=== PATIENT | male | born 1990 | race American Indian/Alaskan Native ===

== ENCOUNTER 2017-01-24 16:22 | Emergency (ER) | payer SELFPAY ==
[2017-01-24 16:42] VITALS: BP 117/77
[2017-01-24] MEDS ORDERED: TETRACAINE 0.5% OU PRN (21:09)
[2017-01-24] MEDS ORDERED: FUL-GLO OP ONE (21:09)
--- NOTE | 2017-01-24 21:18 | Emergency Department Report ---
ED Eye Problem HPI - General Chief complaint: Eye Problems Stated complaint: PINK EYE Time Seen by Provider: 01/24/17 21:09 Source: patient Mode of arrival: Ambulatory Limitations: No Limitations - History of Present Illness Initial comments: This is a 26-year-old male nontoxic, well nourished in appearance, no acute signs of distress presents to the ED with c/o of left eye redness, itching, and crusting x2 days. Patient denies blurry vision, headache, stiff neck, nausea, vomiting, chest pain, shortness of breath, blurry vision or visual changes. Denies any eye pain. Patient states allergies to penicillin, sulfa, tramadol, ibuprofen. Denies past medical history. MD chief complaint: eye redness, other (crusting with itching) -: days(s) (2) Onset Description: gradual If Injury: none Eye Symptoms: redness, itching, discharge Severity: mild Consistency: constant Associated Symptoms: none. denies: headache, neck pain, nausea/vomiting, cough , rhinorrhea, fever, shortness of breath Treatments Prior to Arrival: none - Related Data Previous Rx's Medication Instructions Recorded Last Taken Type HYDROcodone/ACETAMINOPHEN [Beatty 1 each PO Q6HR PRN #20 tablet 03/10/13 Unknown Rx 5/325 Tablet] Metaxalone [Skelaxin] 800 mg PO TID #30 tablet 03/10/13 Unknown Rx Polymyxin B Sulf/Trimethoprim 1 drop OS DAILY #1 drops 01/24/17 Unknown Rx [Polytrim Eye Drops] Allergies Allergy/AdvReac Type Severity Reaction Status Date / Time ibuprofen [From Advil] Allergy Hives Verified 01/24/17 16:38 Penicillins Allergy Rash Verified 01/24/17 16:38 Sulfa (Sulfonamide Allergy Rash Verified 01/24/17 16:38 Antibiotics) tramadol AdvReac Diarrhea Verified 01/24/17 16:38 ED Review of Systems ROS: Stated complaint: PINK EYE Other details as noted in HPI Constitutional: denies: chills, fever Eyes: eye discharge. denies: eye pain, vision change ENT: denies: ear pain, throat pain Respiratory: denies: cough, shortness of breath, wheezing Cardiovascular: denies: chest pain, palpitations Endocrine: no symptoms reported Gastrointestinal: denies: abdominal pain, nausea, diarrhea Genitourinary: denies: urgency, dysuria Musculoskeletal: denies: back pain, joint swelling, arthralgia Skin: denies: rash, lesions Neurological: denies: headache, weakness, paresthesias Psychiatric: denies: anxiety, depression Hematological/Lymphatic: denies: easy bleeding, easy bruising ED Past Medical Hx - Past Medical History Previous Medical History?: No - Surgical History Past Surgical History?: No - Social History Smoking Status: Current Some Day Smoker Substance Use Type: None - Medications Home Medications: Home Medications Medication Instructions Recorded Confirmed Last Taken Type HYDROcodone/ACETAMINOPHEN [Beatty 1 each PO Q6HR PRN #20 tablet 03/10/13 Unknown Rx 5/325 Tablet] Metaxalone [Skelaxin] 800 mg PO TID #30 tablet 03/10/13 Unknown Rx Polymyxin B Sulf/Trimethoprim 1 drop OS DAILY #1 drops 01/24/17 Unknown Rx [Polytrim Eye Drops] ED Physical Exam - General Limitations: No Limitations General appearance: alert, in no apparent distress - Head Head exam: Present: atraumatic, normocephalic - Eye Eye exam: Present: normal appearance, PERRL, EOMI. Absent: scleral icterus, conjunctival injection, nystagmus, periorbital swelling, periorbital tenderness Pupils: Present: normal accommodation - Expanded Eye Exam Expanded Eyelids: Normal Inspection: Left Pupils: Regular, Round: Left, Reactive: Left Sclera/Conjunctival: Normal Inspection: Left, Exudate: Left (with crusting and redness and itching) Visual acuity (R) = 20/: 70 Visual acuity (L) = 20/: 70 With correction: No IOP measured with: Tonopen (14) - ENT ENT exam: Present: normal exam, normal orophraynx, mucous membranes moist, TM's normal bilaterally, normal external ear exam - Neck Neck exam: Present: normal inspection, full ROM - Respiratory Respiratory exam: Present: normal lung sounds bilaterally. Absent: respiratory distress - Cardiovascular Cardiovascular Exam: Present: regular rate, normal rhythm. Absent: systolic murmur, diastolic murmur, rubs, gallop - GI/Abdominal GI/Abdominal exam: Present: soft, normal bowel sounds - Rectal Rectal exam: Present: deferred - Extremities Exam Extremities exam: Present: normal inspection - Back Exam Back exam: Present: normal inspection - Neurological Exam Neurological exam: Present: alert, oriented X3 - Psychiatric Psychiatric exam: Present: normal affect, normal mood - Skin Skin exam: Present: warm, dry, intact, normal color. Absent: rash - Other Other exam information: Under Seth lamp, I used fluorescein and tetracaine to examine cornea for corneal abrasion or foreign body, negative for coronary abrasion or foreign body noted upon exam. ED Course Vital Signs 01/24/17 16:38 Temperature 97.7 F Pulse Rate 79 Respiratory 18 Rate Blood Pressure 117/77 O2 Sat by Pulse 98 Oximetry - Reevaluation(s) Reevaluation #1: 01/24/17 21:20 Patient is speaking in full sentences with no signs of distress noted. ED Medical Decision Making - Medical Decision Making This is a 26-year-old that presents with conjunctivitis. Patient is stable and was examined by me. Under Seth lamp, I used fluorescein and tetracaine to examine cornea for corneal abrasion or foreign body, negative for coronary abrasion or foreign body noted upon exam. Normal visual acuity. Patient is discharged with OFloxin. Patient was instructed Follow-up with a primary care doctor in 3-5 days or if symptoms worsen and continue return to emergency room as soon as possible. At time time of discharge, the patient does not seem toxic or ill in appearance. No acute signs of distress noted. Patient agrees to discharge treatment plan of care. No further questions noted by the patient. Critical care attestation.: If time is entered above; I have spent that time in minutes in the direct care of this critically ill patient, excluding procedure time. ED Disposition Clinical Impression: Conjunctivitis Qualifiers: Conjunctivitis type: acute Acute conjunctivitis type: bacterial Laterality: left Qualified Code(s): H10.32 - Unspecified acute conjunctivitis, left eye Disposition: DC- TO HOME OR SELFCARE Is pt being admited?: No Does the pt Need Aspirin: No Condition: Stable Instructions: Conjunctivitis (ED), Ofloxacin (Into the eye) Additional Instructions: Follow-up with a primary care doctor in 3-5 days or if symptoms worsen and continue return to emergency room as soon as possible. Prescriptions: Polymyxin B Sulf/Trimethoprim [Polytrim Eye Drops] 1 drop OS DAILY #1 drops Referrals: PRIMARY CARE, [Primary Care Provider] - 3-5 Days RAQUEL CARRERA MD [Staff Physician] - 3-5 Days KANWAL MCFADDEN MD [Staff Physician] - 3-5 Days [facility] [Outside] - 3-5 Days [facility] [Outside] - 3-5 Days Forms: Work/School Release Form(ED)
== END 2017-01-24 21:34 | disposition home or self-care (01) ==
LOC: ED 16:22
DX: H10.32 Unspecified acute conjunctivitis, left eye (principal); F17.200 Nicotine dependence, unspecified, uncomplicated; Z88.0 Allergy status to penicillin; Z88.6 Allergy status to analgesic agent; Z88.2 Allergy status to sulfonamides
CPT/HCPCS: 99283

== ENCOUNTER 2017-03-02 13:54 | Emergency (ER) | payer SELFPAY ==
--- NOTE | 2017-03-02 17:01 | XRay Report ---
FINAL REPORT PROCEDURE: Right wrist. TECHNIQUE: Four views. HISTORY: Wrist pain and swelling. COMPARISON: No prior studies are available for comparison. FINDINGS: The bones appear intact without fracture or dislocation. The joint spaces appear normal. The soft tissues are unremarkable. IMPRESSION: Normal study.
[2017-03-02 19:45] VITALS: BP 106/74
[2017-03-02] MEDS ORDERED: TYLENOL PO ONE (20:44)
--- NOTE | 2017-03-02 20:44 | Emergency Department Report ---
ED Upper Extremity Inj HPI - General Chief Complaint: Extremity Injury, Upper Stated Complaint: RIGHT WRIST PAIN Time Seen by Provider: 03/02/17 19:32 Source: patient Mode of arrival: Ambulatory Limitations: No Limitations - History of Present Illness Initial Comments: This is a 26-year-old nontoxic, well nourished in appearance, no acute signs of distress presents to the ED with c/o of right wrist pain status post fall. Patient stated he slipped and tried to break his fall and landed on this anterior wrist region. patient denies head trauma. Denies loss of consciousness.Patient denies any other trauma. Denies numbness, tingling, fever , chills, nausea, vomiting, chest and shortness of breath. Patient states allergies to ibuprofen, penicillin, sulfa and tramadol. Denies past medical history. MD Complaint: Injury to:: right, wrist -: This afternoon Other Extremity Injury: Wrist: Right Other Injuries: none Place: outdoors Severity scale (0 -10): 8 Improves With: none Worsens With: none Context: fall Associated Symptoms: denies other symptoms. denies: weakness, numbness, neck pain, suspects foreign body, nausea/vomiting, heard/felt popping sensat - Related Data Previous Rx's Medication Instructions Recorded Last Taken Type HYDROcodone/ACETAMINOPHEN [[place]olt 1 each PO Q6HR PRN #20 tablet 03/10/13 Unknown Rx 5/325 Tablet] Metaxalone [Skelaxin] 800 mg PO TID #30 tablet 03/10/13 Unknown Rx Polymyxin B Sulf/Trimethoprim 1 drop OS DAILY #1 drops 01/24/17 Unknown Rx [Polytrim Eye Drops] Acetaminophen/Codeine [Tylenol 1 tab PO Q6H PRN #12 tab 03/02/17 Unknown Rx /Codeine # 3 tab] Allergies Allergy/AdvReac Type Severity Reaction Status Date / Time ibuprofen [From Advil] Allergy Hives Verified 03/02/17 14:54 Penicillins Allergy Rash Verified 03/02/17 14:54 Sulfa (Sulfonamide Allergy Rash Verified 03/02/17 14:54 Antibiotics) tramadol AdvReac Diarrhea Verified 03/02/17 14:54 ED Review of Systems ROS: Stated complaint: RIGHT WRIST PAIN Other details as noted in HPI Constitutional: denies: chills, fever Eyes: denies: eye pain, eye discharge, vision change ENT: denies: ear pain, throat pain Respiratory: denies: cough, shortness of breath, wheezing Cardiovascular: denies: chest pain, palpitations Endocrine: no symptoms reported Gastrointestinal: denies: abdominal pain, nausea, diarrhea Genitourinary: denies: urgency, dysuria Musculoskeletal: denies: back pain, joint swelling, arthralgia Skin: denies: rash, lesions Neurological: denies: headache, weakness, paresthesias Psychiatric: denies: anxiety, depression Hematological/Lymphatic: denies: easy bleeding, easy bruising ED Past Medical Hx - Social History Smoking Status: Current Every Day Smoker Substance Use Type: None - Medications Home Medications: Home Medications Medication Instructions Recorded Confirmed Last Taken Type HYDROcodone/ACETAMINOPHEN [Holt 1 each PO Q6HR PRN #20 tablet 03/10/13 Unknown Rx 5/325 Tablet] Metaxalone [Skelaxin] 800 mg PO TID #30 tablet 03/10/13 Unknown Rx Polymyxin B Sulf/Trimethoprim 1 drop OS DAILY #1 drops 01/24/17 Unknown Rx [Polytrim Eye Drops] Acetaminophen/Codeine [Tylenol 1 tab PO Q6H PRN #12 tab 03/02/17 Unknown Rx /Codeine # 3 tab] ED Physical Exam - General Limitations: No Limitations General appearance: alert, in no apparent distress - Head Head exam: Present: atraumatic, normocephalic - Eye Eye exam: Present: normal appearance - ENT ENT exam: Present: mucous membranes moist - Neck Neck exam: Present: normal inspection - Respiratory Respiratory exam: Present: normal lung sounds bilaterally. Absent: respiratory distress - Cardiovascular Cardiovascular Exam: Present: regular rate, normal rhythm. Absent: systolic murmur, diastolic murmur, rubs, gallop - GI/Abdominal GI/Abdominal exam: Present: soft, normal bowel sounds - Rectal Rectal exam: Present: deferred - Extremities Exam Extremities exam: Present: normal inspection, full ROM, tenderness, normal capillary refill. Absent: pedal edema, joint swelling, calf tenderness - Expanded Upper Extremity Exam Right General: Present: normal inspection Shoulder Exam: Present: normal inspection, full ROM Upper Arm exam: Present: normal inspection, full ROM Elbow exam: Present: normal inspection, full ROM Forearm Wrist exam: Present: normal inspection, full ROM, tenderness. Absent: swelling, abrasion, laceration, ecchymosis, deformity, crepidus, dislocation, erythema, tenderness over anatomical snuff box, pain with axial thumb loading Hand Wrist exam: Present: normal inspection, full ROM. Absent: tenderness, swelling, abrasion, laceration, ecchymosis, deformity, crepidus, dislocation, erythema, amputation, nail avulsion, subungual hematoma Hand L/R Back: 1 - tenderness Neuro motor exam: Present: wrist extension intact, thumb opposition intact, thumb IP flexion intact, thumb adduction intact, fingers 2-5 abduction intact Neurosensory exam: Present: 2-point discrimination, radial nerve intact, ulnar nerve intact, median nerve intact Vascular: Present: vascular compromise, normal capillary refill, radial pulse, brachial pulse, ulnar pulse - Back Exam Back exam: Present: normal inspection, full ROM - Neurological Exam Neurological exam: Present: alert, oriented X3, CN II-XII intact, normal gait, reflexes normal - Psychiatric Psychiatric exam: Present: normal affect, normal mood - Skin Skin exam: Present: warm, dry, intact, normal color. Absent: rash ED Course Vital Signs 03/02/17 03/02/17 14:54 19:36 Temperature 98.2 F Pulse Rate 72 70 Respiratory 18 18 Rate Blood Pressure 107/67 106/74 O2 Sat by Pulse 96 100 Oximetry ED Medical Decision Making - Medical Decision Making 26-year-old male that presents with right wrist strain. Patient is stable and was felt by me. X-ray has been obtained and the radiologist with normal exam. She is notified of x-ray results withthe patient. Patient received Tylenol 975 mg in the ED. Patient discharged with Tylenol 3. Patient received hand Velcro splint. Patient advised to follow-up with orthopedic doctor in 3-5 days or if symptoms worsen to return to the ED. At time time of discharge, the patient does not seem toxic or ill in appearance. No acute signs of distress noted. Patient agrees to discharge treatment plan of care. No further questions noted by the patient. Patient was educated on Rice therapy. Critical care attestation.: If time is entered above; I have spent that time in minutes in the direct care of this critically ill patient, excluding procedure time. ED Disposition Clinical Impression: Strain of wrist, right Qualifiers: Encounter type: initial encounter Qualified Code(s): S66.911A - Strain of unspecified muscle, fascia and tendon at wrist and hand level, right hand, initial encounter Disposition: TO HOME OR SELFCARE Is pt being admited?: No Does the pt Need Aspirin: No Condition: Stable Instructions: Wrist Injury (ED), RICE Therapy (ED), Acetaminophen/Codeine (By mouth) Additional Instructions: Follow-up with a orthopedic doctor in 3-5 days or if symptoms worsen and continue return to emergency room as soon as possible. Rest, elevate, ice extremity. Do not operate any machinery while taking Tylenol No. 3 due to drowsiness. Prescriptions: Acetaminophen/Codeine [Tylenol /Codeine # 3 tab] 1 tab PO Q6H PRN #12 tab PRN Reason: Pain Referrals: PRIMARY CAREMD [Primary Care Provider] - 3-5 Days LUKAS CARVAJAL MD [Staff Physician] - 3-5 Days [facility] [Outside] - 3-5 Days [facility] [Outside] - 3-5 Days Forms: Work/School Release Form(ED)
== END 2017-03-02 20:54 | disposition home or self-care (01) ==
LOC: ED 13:54
DX: S66.911A Strain of unspecified muscle, fascia and tendon at wrist and hand level, right hand, initial encounter (principal); F17.200 Nicotine dependence, unspecified, uncomplicated; Z88.6 Allergy status to analgesic agent; Z88.0 Allergy status to penicillin; Z88.2 Allergy status to sulfonamides; W01.0XXA Fall on same level from slipping, tripping and stumbling without subsequent striking against object, initial encounter; Y93.89 Activity, other specified; Y99.8 Other external cause status; Y92.89 Other specified places as the place of occurrence of the external cause

== ENCOUNTER 2017-04-08 01:12 | Inpatient (IN) | payer OTHER ==
--- NOTE | 2017-04-08 03:28 | XRay Report ---
FINAL REPORT PROCEDURE: XR SPINE LUMBOSACRAL 2-3V TECHNIQUE: Lumbar spine radiographs, including AP, lateral, and lumbosacral spot views. CPT 24944 HISTORY: Back Pain COMPARISON: No prior studies are available for comparison. FINDINGS: Alignment: Normal. Vertebral body heights/Disk spaces: Normal. Fracture(s): None. Facets: Normal. Bone mineralization: Normal. IMPRESSION: Normal Examination.
[2017-04-08 03:34] LABS: Hematocrit 37.9 % (35.5-45.6); Mean Corpuscular HGB Conc 34 % (32-34); Mean Corpuscular Hemoglobin 31 pg (28-32); Mean Corpuscular Volume 90 fl (84-94); Platelet Count 210 K/mm3 (140-440); Red Blood Count 4.19 M/mm3 (3.65-5.03); Red Cell Distribution Width 13.1 % (13.2-15.2)
[2017-04-08 03:57] LABS: Alanine Aminotransferase 43 units/L (7-56); Albumin 3.7 g/dL (3.9-5); BUN/Creatinine Ratio 12; Blood Urea Nitrogen 11 mg/dL (9-20); Calcium 8.8 mg/dL (8.4-10.2); Hemolysis Index 9; Lipase 19 units/L (13-60)
[2017-04-08 05:31] LABS: Anisocytosis 1+; Band Neutrophils # (Manual) 0.4 K/mm3; Basophils % (Manual) 0 % (0.0-1.8); Eosinophils % (Manual) 0 % (0.0-4.3); Total Cells Counted 100
[2017-04-08 05:32] LABS: Hypochromasia 1+; Large Platelets Few
[2017-04-08 06:11] LABS: Bilirubin,Urine NEG (Negative); Blood,Urine NEG (Negative); Color,Urine Yellow (Yellow); Mucus,Urine 1+ /HPF; Nitrite,Urine NEG (Negative); Protein,Urine <15 mg/dL mg/dL (Negative); WBC,Urine < 1.0 /HPF (0.0-6.0)
[2017-04-08] MEDS ORDERED: NACL 0.9% 1000 ML 1,000 ML IV ONE (08:24)
[2017-04-08] MEDS ORDERED: PEPCID PO ONE (08:25)
[2017-04-08] MEDS ORDERED: ALUM-MAG HYDROX-SIMETH 200-200-20MG/5ML PO ONE (08:25)
[2017-04-08] MEDS ORDERED: MORPHINE IV ONE (08:25)
[2017-04-08] MEDS ORDERED: LIDOCAINE VISCOUS 2% PO ONE (08:25)
--- NOTE | 2017-04-08 08:29 | Emergency Department Report ---
ED Abdominal Pain HPI - General Chief Complaint: Abdominal Pain Stated Complaint: FLU LIKE SX Time Seen by Provider: 04/08/17 07:49 Source: patient Mode of arrival: Ambulatory Limitations: No Limitations - History of Present Illness Initial Comments: 26-year-old male past medical history none presents with complaint of persistent worsening lower abdominal pain for 5 days. Patient states it starts in his lower abdomen below his navel and radiates to his lower back. Patient denies any trauma. Denies any fevers or chills. Some intermittent associated nausea. States he is passing gas and stool, denies bloody stool. Denies any recent travel or recent antibiotic use. Denies any penile discharge dysuria or testicular swelling. Patient is awake alert and oriented 3. Pain currently 8 out of 10. Denies chest pain palpitations or shortness of breath. MD Complaint: abdominal pain Onset/Timin -: days(s) Location: RLQ Radiation: RLQ Migration to: RLQ Severity: moderate Quality: aching Consistency: constant - Related Data Previous Rx's Medication Instructions Recorded Last Taken Type HYDROcodone/ACETAMINOPHEN [Russell 1 each PO Q6HR PRN #20 tablet 03/10/13 Unknown Rx 5/325 Tablet] Metaxalone [Skelaxin] 800 mg PO TID #30 tablet 03/10/13 Unknown Rx Polymyxin B Sulf/Trimethoprim 1 drop OS DAILY #1 drops 01/24/17 Unknown Rx [Polytrim Eye Drops] Acetaminophen/Codeine [Tylenol 1 tab PO Q6H PRN #12 tab 03/02/17 Unknown Rx /Codeine # 3 tab] Allergies Allergy/AdvReac Type Severity Reaction Status Date / Time ibuprofen [From Advil] Allergy Hives Verified 03/02/17 14:54 Penicillins Allergy Rash Verified 03/02/17 14:54 Sulfa (Sulfonamide Allergy Rash Verified 03/02/17 14:54 Antibiotics) tramadol AdvReac Diarrhea Verified 03/02/17 14:54 ED Review of Systems ROS: Stated complaint: FLU LIKE SX Other details as noted in HPI Constitutional: denies: chills, fever Eyes: denies: eye pain, eye discharge, vision change ENT: denies: ear pain, throat pain Respiratory: denies: cough, shortness of breath, wheezing Cardiovascular: denies: chest pain, palpitations Endocrine: no symptoms reported Gastrointestinal: abdominal pain (persistent worsening abdominal pain for 5 days ). denies: nausea, diarrhea Genitourinary: denies: urgency, dysuria Musculoskeletal: denies: back pain, joint swelling, arthralgia Skin: denies: rash, lesions Neurological: denies: headache, weakness, paresthesias Psychiatric: denies: anxiety, depression Hematological/Lymphatic: denies: easy bleeding, easy bruising ED Past Medical Hx - Past Medical History Previous Medical History?: Yes Hx Asthma: Yes - Surgical History Past Surgical History?: Yes Additional Surgical History: Ear surgery as a teenager. - Social History Smoking Status: Former Smoker Substance Use Type: None - Medications Home Medications: Home Medications Medication Instructions Recorded Confirmed Last Taken Type HYDROcodone/ACETAMINOPHEN [Russell 1 each PO Q6HR PRN #20 tablet 03/10/13 Unknown Rx 5/325 Tablet] Metaxalone [Skelaxin] 800 mg PO TID #30 tablet 03/10/13 Unknown Rx Polymyxin B Sulf/Trimethoprim 1 drop OS DAILY #1 drops 01/24/17 Unknown Rx [Polytrim Eye Drops] Acetaminophen/Codeine [Tylenol 1 tab PO Q6H PRN #12 tab 03/02/17 Unknown Rx /Codeine # 3 tab] ED Physical Exam - General Limitations: No Limitations General appearance: alert, in no apparent distress - Head Head exam: Present: atraumatic, normocephalic - Eye Eye exam: Present: normal appearance, PERRL, EOMI - ENT ENT exam: Present: mucous membranes moist - Neck Neck exam: Present: normal inspection - Respiratory Respiratory exam: Present: normal lung sounds bilaterally. Absent: respiratory distress - Cardiovascular Cardiovascular Exam: Present: regular rate, normal rhythm. Absent: systolic murmur, diastolic murmur, rubs, gallop - GI/Abdominal GI/Abdominal exam: Present: tenderness (rlq pain), normal bowel sounds - Rectal Rectal exam: Present: heme (-) stool - Extremities Exam Extremities exam: Present: normal inspection - Back Exam Back exam: Present: normal inspection - Neurological Exam Neurological exam: Present: alert, oriented X3 - Psychiatric Psychiatric exam: Present: normal affect, normal mood - Skin Skin exam: Present: warm, dry, intact, normal color. Absent: rash ED Course Vital Signs 04/08/17 04/08/17 04/08/17 02:51 09:11 09:34 Temperature 99.2 F Pulse Rate 77 76 Respiratory 20 18 Rate Blood Pressure 112/62 90/53 O2 Sat by Pulse 98 100 Oximetry 04/08/17 09:35 Temperature Pulse Rate 78 Respiratory Rate Blood Pressure O2 Sat by Pulse 100 Oximetry ED Medical Decision Making - Lab Data Result diagrams: 04/08/17 03:07 04/08/17 03:07 - Medical Decision Making A/P: Abdominal pain, ulcerative colitis complications 1-case discussed with Dr. Singer, as per Dr. Singer patient to be admitted to give patient dose of IV antibiotics we'll give Levaquin and metronidazole as patient is allergic to penicillins and cannot give Zosyn at this time 2-nothing by mouth, IV maintenance fluids 3-I discussed case with hospitalist , admission orders placed 4- consult placed for GI. negative bedside IRENE, neg hemoccult test no blood on test Critical care attestation.: If time is entered above; I have spent that time in minutes in the direct care of this critically ill patient, excluding procedure time. ED Disposition Clinical Impression: Abdominal pain Qualifiers: Abdominal location: periumbilical Qualified Code(s): R10.33 - Periumbilical pain Ulcerative colitis Qualifiers: Ulcerative colitis location: other ulcerative colitis Digestive disease complication type: other complication Qualified Code(s): K51.818 - Other ulcerative colitis with other complication Disposition: OP ADMIT IP TO THIS HOSP Is pt being admited?: Yes Does the pt Need Aspirin: No Condition: Stable Referrals: JUAN PERSON MD [Primary Care Provider] - 3-5 Days
[2017-04-08] MEDS ORDERED: NACL ONE (08:37)
--- NOTE | 2017-04-08 09:17 | Cat Scan Report ---
FINAL REPORT EXAM: CT ABDOMEN PELVIS W CON HISTORY: periumbilical pain , rlq pain ? appy TECHNIQUE: CT images are acquired through the Abdomen and Pelvis arterial and delayed phases following intravenous administration of contrast. Transaxial, coronal and sagittal reformations are provided. PRIORS: None FINDINGS: Partially visualized intrathoracic contents are unremarkable. The liver, gallbladder, pancreas, spleen, and adrenal glands are unremarkable. Kidneys show no worrisome lesions, hydronephrosis, or calculi. Urinary bladder is unremarkable. Small and large bowel are normal in caliber. Appendix is normal. No pneumoperitoneum. There are multiple centrally hypo enhancing structures in the abdomen and pelvis with surrounding stranding and edema measuring approximately 12 x 12 millimeters on axial series 3, image 90, of 16 x 12 millimeters on image 114, and 13 x 13 and 14 x 14 millimeters in the perirectal fat on axial image 128. There is mild wall thickening and irregularity involving rectum. Aorta is normal in course and caliber. Superficial soft tissues are unremarkable. No acute or aggressive appearing skeletal findings. IMPRESSION: Centrally necrotic lymph nodes versus abscesses within the retroperitoneum and perirectal fat measuring up to 16 millimeters in greatest individual dimension, as detailed above. Correlation with immune status and symptoms and history of gastrointestinal inflammation/infection is requested. Malignancy could appear similar but is thought less likely. There is suggested mild edematous rectal wall thickening and infiltration of the perirectal fat. Gastroenterology consultation may be helpful for initial further evaluation. Dr. Sarkar discussed findings with CHELSEY Rollins at 0803 [address] Time on 04/08/2017 immediately following the examination.
[2017-04-08] MEDS ORDERED: LEVAQUIN 750MG/150ML 750 MG/150 ML BAG IV ONE (09:48)
[2017-04-08] MEDS ORDERED: MORPHINE IV PRN (09:54)
--- NOTE | 2017-04-08 10:23 | History and Physical Report ---
History of Present Illness Date of examination: 04/08/17 Chief complaint: Abdominal pain History of present illness: Patient is a 26-year-old man with a history of tobacco dependency, marijuana use and ulcerative colitis, diagnosed July 2016 at [facility] with a colonoscopy at that time who presents to the [facility] emergency department with severe sharp constant right lower generalized abdominal pains that started about 5 days ago radiating across lower abdomen to the lower back, the pain became unbearable over the last 24hours associated with nausea without vomiting , constipation, subjective fevers and chills. He denies any cough, chest pain, severe headaches. Past medical history: As HPI Past surgical history: He denies any surgeries Social history: He stopped smoking in couple days ago, he smokes marijuana daily , no alcohol use abuse other illegal drug use Family history: Parents has hypertension but there is no inflammatory bowel syndrome that he is aware of ROS: Constitutional: + fever ENT: denies: throat or neck pain Respiratory: denies: cough, shortness of breath Cardiovascular: denies: chest pain Endocrine: denies unexplained weight loss or gain Gastrointestinal: +abdominal pain, nausea Genitourinary: denies: dysuria Rectal: denies no incontinence, no bleeding, no itching, no discharge Musculoskeletal: +LBP Skin: denies: rash Neurological: denies: headache Hematological/Lymphatic: denies: easy bleeding or easy bruising Allergic/Immunologic: no urticaria, no allergic rhinitis, no anaphylaxis Psych: denies sadness or hopelessness, SI/HI Medications and Allergies Allergies Allergy/AdvReac Type Severity Reaction Status Date / Time ibuprofen [From Advil] Allergy Hives Verified 04/08/17 10:09 Penicillins Allergy Rash Verified 04/08/17 10:09 Sulfa (Sulfonamide Allergy Rash Verified 04/08/17 10:09 Antibiotics) tramadol AdvReac Diarrhea Verified 04/08/17 10:09 Home Medications Medication Instructions Recorded Confirmed Last Taken Type HYDROcodone/ACETAMINOPHEN [[place] 1 each PO Q6HR PRN #20 tablet 03/10/13 Unknown Rx 5/325 Tablet] Metaxalone [Skelaxin] 800 mg PO TID #30 tablet 03/10/13 Unknown Rx Polymyxin B Sulf/Trimethoprim 1 drop OS DAILY #1 drops 01/24/17 Unknown Rx [Polytrim Eye Drops] Acetaminophen/Codeine [Tylenol 1 tab PO Q6H PRN #12 tab 03/02/17 Unknown Rx /Codeine # 3 tab] Active Meds: Active Medications Levofloxacin/Dextrose (Levaquin 750mg/150ml) 750 mg in 150 mls @ 100 mls/hr IV ONCE ONE Stop: 04/08/17 11:17 Last Admin: 04/08/17 09:50 Dose: 100 mls/hr Metronidazole (Flagyl 500 Mg/100 Ml) 500 mg in 100 mls @ 200 mls/hr IV ONCE RICHARD Sodium Chloride (Nacl 0.9% 1000 Ml) 1,000 mls @ 150 mls/hr IV DIRECT RICHARD Morphine Sulfate (Morphine) 2 mg IV Q4H PRN PRN Reason: Pain, Moderate (4-6) Exam - Physical Exam Narrative exam: GEN: WDWN, NAD, AWAKE, ALERT, ORIENTATED 3 HEENT: NCAT, EOMI, PERRL, OP Clear NECK: supple, no adenopathy, no thyromegaly, no JVD CVS/HEART: RRR, NORMAL S1S2, pulses present bilaterally CHEST/LUNGS: CTA B, Symmetrical chest expansion, good air entry bilaterally GI/Abdomen: soft, nondistended, diffuse tenderness with guarding, good bowel sounds, no rebound /Bladder: no suprapubic tenderness, no CVA or paraspinal tenderness EXT/Skin: no c/c/e, no obvious rash MSK: FROM x 4 Neuro: CN 2-12 grossly intact, no new focal deficits Psych: calm - Constitutional Vitals: Temp Pulse Resp BP Pulse Ox 100.2 F H 76 18 90/50 100 04/08/17 10:06 04/08/17 10:06 04/08/17 10:06 04/08/17 10:06 04/08/17 10:06 Results - Labs CBC & Chem 7: 04/08/17 03:07 04/08/17 03:07 Labs: Abnormal lab results 04/08/17 04/08/17 04/08/17 Range/Units 03:07 03:07 Unknown RDW 13.1 L (13.2-15.2) % Monocytes % (Manual) 12.0 H (0.0-7.3) % Monocytes # (Manual) 1.2 H (0.0-0.8) K/mm3 Sodium 136 L (137-145) mmol/L Total Protein 8.5 H (6.3-8.2) g/dL Albumin 3.7 L (3.9-5) g/dL Ur Specific [place] 1.034 H (1.003-1.030) Assessment and Plan Patient is a 26-year-old man with a history of tobacco dependency, marijuana use and ulcerative colitis, diagnosed July 2016 at [facility] with a colonoscopy at that time who presents to the [facility] emergency department with severe sharp constant right lower generalized abdominal pains that started about 5 days ago radiating across lower abdomen to the lower back, the pain became unbearable over the last 24hours associated with nausea without vomiting , constipation, subjective fevers and chills. He denies any cough, chest pain, severe headaches. 2-3v LS spine reported as normal examination CT abd/pelvis w/ constrast reported as Centrally necrotic lymph nodes versus abscesses within the retroperitoneum and perirectal fat measuring up to 16 millimeters in greatest individual dimension, as detailed above. Correlation with immune status and symptoms and history of gastrointestinal inflammation/ infection is requested. Malignancy could appear similar but is thought less likely. There is suggested mild edematous rectal wall thickening and infiltration of the perirectal fat. Gastroenterology consultation may be helpful for initial further evaluation. Dr. Sarkar discussed findings with CHELSEY Rollins at [address] Time on 04/08/2017 immediately following the examination. -Abd pains most likely IBD/UC flare maybe associated with stopping smoking: consult GI -Proctatitis vs Abscess: consult GI, treat with IV abx, ivf -Hypotension: treat with IVF -Constipation: miralax
[2017-04-08] MEDS ORDERED: MORPHINE ONE (11:50)
[2017-04-08] MEDS: FLAGYL 500 MG/100 ML 500 MG/100 ML BAG IV SCH ×2 (12:04→15:10)
--- NOTE | 2017-04-08 12:55 | Gastroenterology Consultation ---
History of Present Illness - Reason for Consult Consult date: 04/08/17 ulcerative colitis Requesting physician: ZION CHAVEZ - History of Present Illness The patient is a 26 year old man now admitted for severe abdominal pain and a history of ulcerative colitis diagnosed at [facility] about 7 months ago. He has had chronic mild diarrhea but was at baseline until a few weeks ago when progressive diffuse abdominal pain began. The patient reports being homeless at the time of his diagnosis and did not take any medications or have any follow up. He does not know the severity or distribution of his disease. CT revealed enlarged mesenteric LNs some with necrotic features. He is not aware of any immunosuppressing conditions. Past History Past Medical History: other (Ulcerative colitis) Past Surgical History: No surgical history Social history: no significant social history, smoking. denies: alcohol abuse, prescription drug abuse Family history: no significant family history Medications and Allergies Allergies Allergy/AdvReac Type Severity Reaction Status Date / Time ibuprofen [From Advil] Allergy Hives Verified 04/08/17 10:09 Penicillins Allergy Rash Verified 04/08/17 10:09 Sulfa (Sulfonamide Allergy Rash Verified 04/08/17 10:09 Antibiotics) tramadol AdvReac Diarrhea Verified 04/08/17 10:09 Home Medications Medication Instructions Recorded Confirmed Last Taken Type HYDROcodone/ACETAMINOPHEN [[place] 1 each PO Q6HR PRN #20 tablet 03/10/13 Unknown Rx 5/325 Tablet] Metaxalone [Skelaxin] 800 mg PO TID #30 tablet 03/10/13 Unknown Rx Polymyxin B Sulf/Trimethoprim 1 drop OS DAILY #1 drops 01/24/17 Unknown Rx [Polytrim Eye Drops] Acetaminophen/Codeine [Tylenol 1 tab PO Q6H PRN #12 tab 03/02/17 Unknown Rx /Codeine # 3 tab] Active Meds: Active Medications Metronidazole (Flagyl 500 Mg/100 Ml) 500 mg in 100 mls @ 200 mls/hr IV ONCE RICHARD Last Admin: 04/08/17 12:04 Dose: 200 mls/hr Sodium Chloride (Nacl 0.9% 1000 Ml) 1,000 mls @ 150 mls/hr IV DIRECT RICHARD Morphine Sulfate (Morphine) 2 mg IV Q4H PRN PRN Reason: Pain, Moderate (4-6) Last Admin: 04/08/17 11:53 Dose: 2 mg Review of Systems - Review of Systems Constitutional: no weight loss, no weight gain, no fever, no chills Eyes: no change in vision, no pain Ears, Nose, Throat: no decreased hearing, no difficulty swallowing Breasts: deferred Cardiovascular: no chest pain, no edema, no rapid/irregular heart beat, no shortness of breath, no syncope Respiratory: no cough, no shortness of breath, no wheezing Gastrointestinal: abdominal pain, diarrhea, no nausea, no vomiting, no constipation, no hematochezia, no heartburn, no indigestion Rectal: no pain, no incontinence Male Genitourinary: deferred Musculoskeletal: no gait dysfunction, no joint pain, no muscle pain Integumentary: no deferred, no rash, no pruritis Neurological: no paralysis, no weakness Psychiatric: no anxiety, no memory loss, no change in sleep habits Endocrine: no cold intolerance Hematologic/Lymphatic: no easy bruising, no easy bleeding, no lymphadenopathy Allergic/Immunologic: no wheezing Exam - Constitutional Vital Signs: Temp Pulse Resp BP Pulse Ox 98.5 F 81 18 121/66 100 04/08/17 12:25 04/08/17 12:25 04/08/17 12:25 04/08/17 12:25 04/08/17 12:25 General appearance: no acute distress, well-nourished - EENT Eyes: PERRL ENT: hearing intact, clear oral mucosa, dentition normal - Neck Neck: supple, normal ROM, no masses or JVD - Respiratory Respiratory effort: normal Respiratory: bilateral: CTA - Breasts Breasts: deferred - Cardiovascular Rhythm: regular Heart Sounds: Present: S1 & S2. Absent: gallop, rub Extremities: pulses intact, No edema, normal color, Full ROM - Gastrointestinal General gastrointestinal: Present: soft, tender (mild diffuse tenderness, no rebound or guarding.), non-distended. Absent: rigid, hepatomegaly, splenomegaly , mass Rectal Exam: deferred - Genitourinary Male Genitourinary: deferred - Integumentary Integumentary: Present: clear, warm, dry - Neurologic Neurological: alert and oriented x3 - Labs CBC & Chem 7: 04/08/17 03:07 04/08/17 03:07 Lab Results: Laboratory Results - last 24 hr 02/17/18 02/17/18 02/17/18 03:07 03:07 08:38 WBC 10.2 RBC 4.19 Hgb 13.0 Hct 37.9 MCV 90 MCH 31 MCHC 34 RDW 13.1 L Plt Count 210 Add Manual Diff Complete Total Counted 100 Seg Neuts % (Manual) 60.0 Band Neutrophils % 4.0 Lymphocytes % (Manual) 24.0 Reactive Lymphs % (Man) 0 Monocytes % (Manual) 12.0 H Eosinophils % (Manual) 0 Basophils % (Manual) 0 Metamyelocytes % 0 Myelocytes % 0 Promyelocytes % 0 Blast Cells % 0 Nucleated RBC % Not Reportable Seg Neutrophils # Man 6.1 Band Neutrophils # 0.4 Lymphocytes # (Manual) 2.4 Abs React Lymphs (Man) 0.0 Monocytes # (Manual) 1.2 H Eosinophils # (Manual) 0.0 Basophils # (Manual) 0.0 Metamyelocytes # 0.0 Myelocytes # 0.0 Promyelocytes # 0.0 Blast Cells # 0.0 WBC Morphology Not Reportable Hypersegmented Neuts Not Reportable Hyposegmented Neuts Not Reportable Hypogranular Neuts Not Reportable Smudge Cells Not Reportable Toxic Granulation Not Reportable Toxic Vacuolation Not Reportable Dohle Bodies Not Reportable Pelger-Huet Anomaly Not Reportable Dougei Rods Not Reportable Platelet Estimate Appears normal Clumped Platelets Not Reportable Plt Clumps, EDTA Not Reportable Large Platelets Few Giant Platelets Not Reportable Platelet Satelliting Not Reportable Plt Morphology Comment Not Reportable RBC Morphology Not Reportable Dimorphic RBCs Not Reportable Polychromasia Not Reportable Hypochromasia 1+ Poikilocytosis Not Reportable Anisocytosis 1+ Microcytosis Not Reportable Macrocytosis Not Reportable Spherocytes Not Reportable Pappenheimer Bodies Not Reportable Sickle Cells Not Reportable Target Cells Not Reportable Tear Drop Cells Not Reportable Ovalocytes Not Reportable Helmet Cells Not Reportable [place] Bodies Not Reportable [place] Rings Not Reportable Majo Cells Not Reportable Bite Cells Not Reportable Crenated Cell Not Reportable Elliptocytes Not Reportable Acanthocytes (Spur) Not Reportable Rouleaux Not Reportable Hemoglobin C Crystals Not Reportable Schistocytes Not Reportable Malaria parasites Not Reportable Bay Bodies Not Reportable Hem Pathologist Commnt No Sodium 136 L Potassium 4.4 Chloride 98.6 Carbon Dioxide 26 Anion Gap 16 BUN 11 Creatinine 0.9 Estimated GFR > 60 BUN/Creatinine Ratio 12 Glucose 88 Lactic Acid 0.70 Calcium 8.8 Total Bilirubin 0.30 AST 34 ALT 43 Alkaline Phosphatase 119 Total Creatine Kinase Total Protein 8.5 H Albumin 3.7 L Albumin/Globulin Ratio 0.8 Lipase 19 Urine Color Urine Turbidity Urine pH Ur Specific [place] Urine Protein Urine Glucose (UA) Urine Ketones Urine Blood Urine Nitrite Urine Bilirubin Urine Urobilinogen Ur Leukocyte Esterase Urine WBC (Auto) Urine RBC (Auto) U Epithel Cells (Auto) Urine Mucus 04/08/17 04/08/17 08:38 Unknown WBC RBC Hgb Hct MCV MCH MCHC RDW Plt Count Add Manual Diff Total Counted Seg Neuts % (Manual) Band Neutrophils % Lymphocytes % (Manual) Reactive Lymphs % (Man) Monocytes % (Manual) Eosinophils % (Manual) Basophils % (Manual) Metamyelocytes % Myelocytes % Promyelocytes % Blast Cells % Nucleated RBC % Seg Neutrophils # Man Band Neutrophils # Lymphocytes # (Manual) Abs React Lymphs (Man) Monocytes # (Manual) Eosinophils # (Manual) Basophils # (Manual) Metamyelocytes # Myelocytes # Promyelocytes # Blast Cells # WBC Morphology Hypersegmented Neuts Hyposegmented Neuts Hypogranular Neuts Smudge Cells Toxic Granulation Toxic Vacuolation Dohle Bodies Pelger-Huet Anomaly Dougie Rods Platelet Estimate Clumped Platelets Plt Clumps, EDTA Large Platelets Giant Platelets Platelet Satelliting Plt Morphology Comment RBC Morphology Dimorphic RBCs Polychromasia Hypochromasia Poikilocytosis Anisocytosis Microcytosis Macrocytosis Spherocytes Pappenheimer Bodies Sickle Cells Target Cells Tear Drop Cells Ovalocytes Helmet Cells Goodman-[place] Bodies [place] Rings Majo Cells Bite Cells Crenated Cell Elliptocytes Acanthocytes (Spur) Rouleaux Hemoglobin C Crystals Schistocytes Malaria parasites [place] Bodies Hem Pathologist Commnt Sodium Potassium Chloride Carbon Dioxide Anion Gap BUN Creatinine Estimated GFR BUN/Creatinine Ratio Glucose Lactic Acid Calcium Total Bilirubin AST ALT Alkaline Phosphatase Total Creatine Kinase 137 Total Protein Albumin Albumin/Globulin Ratio Lipase Urine Color Yellow Urine Turbidity Clear Urine pH 5.0 Ur Specific [place] 1.034 H Urine Protein <15 mg/dl Urine Glucose (UA) Neg Urine Ketones Neg Urine Blood Neg Urine Nitrite Neg Urine Bilirubin Neg Urine Urobilinogen 4.0 Ur Leukocyte Esterase Neg Urine WBC (Auto) < 1.0 Urine RBC (Auto) 3.0 U Epithel Cells (Auto) < 1.0 Urine Mucus 1+ Laboratory Results - last 24 hr 04/08/17 04/08/17 04/08/17 03:07 03:07 08:38 WBC 10.2 RBC 4.19 Hgb 13.0 Hct 37.9 MCV 90 MCH 31 MCHC 34 RDW 13.1 L Plt Count 210 Add Manual Diff Complete Total Counted 100 Seg Neuts % (Manual) 60.0 Band Neutrophils % 4.0 Lymphocytes % (Manual) 24.0 Reactive Lymphs % (Man) 0 Monocytes % (Manual) 12.0 H Eosinophils % (Manual) 0 Basophils % (Manual) 0 Metamyelocytes % 0 Myelocytes % 0 Promyelocytes % 0 Blast Cells % 0 Nucleated RBC % Not Reportable Seg Neutrophils # Man 6.1 Band Neutrophils # 0.4 Lymphocytes # (Manual) 2.4 Abs React Lymphs (Man) 0.0 Monocytes # (Manual) 1.2 H Eosinophils # (Manual) 0.0 Basophils # (Manual) 0.0 Metamyelocytes # 0.0 Myelocytes # 0.0 Promyelocytes # 0.0 Blast Cells # 0.0 WBC Morphology Not Reportable Hypersegmented Neuts Not Reportable Hyposegmented Neuts Not Reportable Hypogranular Neuts Not Reportable Smudge Cells Not Reportable Toxic Granulation Not Reportable Toxic Vacuolation Not Reportable Dohle Bodies Not Reportable Pelger-Huet Anomaly Not Reportable Dougie Rods Not Reportable Platelet Estimate Appears normal Clumped Platelets Not Reportable Plt Clumps, EDTA Not Reportable Large Platelets Few Giant Platelets Not Reportable Platelet Satelliting Not Reportable Plt Morphology Comment Not Reportable RBC Morphology Not Reportable Dimorphic RBCs Not Reportable Polychromasia Not Reportable Hypochromasia 1+ Poikilocytosis Not Reportable Anisocytosis 1+ Microcytosis Not Reportable Macrocytosis Not Reportable Spherocytes Not Reportable Pappenheimer Bodies Not Reportable Sickle Cells Not Reportable Target Cells Not Reportable Tear Drop Cells Not Reportable Ovalocytes Not Reportable Helmet Cells Not Reportable [place] Bodies Not Reportable [place] Rings Not Reportable Majo Cells Not Reportable Bite Cells Not Reportable Crenated Cell Not Reportable Elliptocytes Not Reportable Acanthocytes (Spur) Not Reportable Rouleaux Not Reportable Hemoglobin C Crystals Not Reportable Schistocytes Not Reportable Malaria parasites Not Reportable [place] Bodies Not Reportable Hem Pathologist Commnt No Sodium 136 L Potassium 4.4 Chloride 98.6 Carbon Dioxide 26 Anion Gap 16 BUN 11 Creatinine 0.9 Estimated GFR > 60 BUN/Creatinine Ratio 12 Glucose 88 Lactic Acid 0.70 Calcium 8.8 Total Bilirubin 0.30 AST 34 ALT 43 Alkaline Phosphatase 119 Total Creatine Kinase Total Protein 8.5 H Albumin 3.7 L Albumin/Globulin Ratio 0.8 Lipase 19 Urine Color Urine Turbidity Urine pH Ur Specific [place] Urine Protein Urine Glucose (UA) Urine Ketones Urine Blood Urine Nitrite Urine Bilirubin Urine Urobilinogen Ur Leukocyte Esterase Urine WBC (Auto) Urine RBC (Auto) U Epithel Cells (Auto) Urine Mucus 04/08/17 04/08/17 08:38 Unknown WBC RBC Hgb Hct MCV MCH MCHC RDW Plt Count Add Manual Diff Total Counted Seg Neuts % (Manual) Band Neutrophils % Lymphocytes % (Manual) Reactive Lymphs % (Man) Monocytes % (Manual) Eosinophils % (Manual) Basophils % (Manual) Metamyelocytes % Myelocytes % Promyelocytes % Blast Cells % Nucleated RBC % Seg Neutrophils # Man Band Neutrophils # Lymphocytes # (Manual) Abs React Lymphs (Man) Monocytes # (Manual) Eosinophils # (Manual) Basophils # (Manual) Metamyelocytes # Myelocytes # Promyelocytes # Blast Cells # WBC Morphology Hypersegmented Neuts Hyposegmented Neuts Hypogranular Neuts Smudge Cells Toxic Granulation Toxic Vacuolation Dohle Bodies Pelger-Huet Anomaly Dougie Rods Platelet Estimate Clumped Platelets Plt Clumps, EDTA Large Platelets Giant Platelets Platelet Satelliting Plt Morphology Comment RBC Morphology Dimorphic RBCs Polychromasia Hypochromasia Poikilocytosis Anisocytosis Microcytosis Macrocytosis Spherocytes Pappenheimer Bodies Sickle Cells Target Cells Tear Drop Cells Ovalocytes Helmet Cells Goodman-[place] Bodies [place] Rings Majo Cells Bite Cells Crenated Cell Elliptocytes Acanthocytes (Spur) Rouleaux Hemoglobin C Crystals Schistocytes Malaria parasites [place] Bodies Hem Pathologist Commnt Sodium Potassium Chloride Carbon Dioxide Anion Gap BUN Creatinine Estimated GFR BUN/Creatinine Ratio Glucose Lactic Acid Calcium Total Bilirubin AST ALT Alkaline Phosphatase Total Creatine Kinase 137 Total Protein Albumin Albumin/Globulin Ratio Lipase Urine Color Yellow Urine Turbidity Clear Urine pH 5.0 Ur Specific [place] 1.034 H Urine Protein <15 mg/dl Urine Glucose (UA) Neg Urine Ketones Neg Urine Blood Neg Urine Nitrite Neg Urine Bilirubin Neg Urine Urobilinogen 4.0 Ur Leukocyte Esterase Neg Urine WBC (Auto) < 1.0 Urine RBC (Auto) 3.0 U Epithel Cells (Auto) < 1.0 Urine Mucus 1+ - Imaging CT Scan: report reviewed Assessment and Plan - Patient Problems (1) Mesenteric lymphadenopathy Current Visit: Yes Status: Acute Plan to address problem: Possibly infectious vs reactive. Rule out TB, HIV. Agree with empiric antibiotic coverage. (2) Ulcerative colitis Current Visit: Yes Status: Acute Qualifiers: Ulcerative colitis location: other ulcerative colitis Digestive disease complication type: other complication Qualified Code(s): K51.818 - Other ulcerative colitis with other complication Plan to address problem: Untreated UC with unknown severity and distribution as the patient has not been engaged in healthcare since diagnosis 7 months ago. Would avoid steroids until infectious possibilities are clarified. Need old records. May need repeat colonoscopy.
[2017-04-08] MEDS: MORPHINE IV PRN (17:39)
[2017-04-09] MEDS: NACL 0.9% 1000 ML 1,000 ML IV SCH ×2 (06:49→13:52)
[2017-04-09] MEDS: MORPHINE IV PRN (06:57)
--- NOTE | 2017-04-09 15:35 | Gastroenterology Progress Note ---
Assessment and Plan - Patient Problems (1) Mesenteric lymphadenopathy Current Visit: Yes Status: Acute Plan to address problem: Possibly related to HIV disease. (2) Ulcerative colitis Current Visit: Yes Status: Acute Qualifiers: Ulcerative colitis location: other ulcerative colitis Digestive disease complication type: other complication Qualified Code(s): K51.818 - Other ulcerative colitis with other complication Plan to address problem: His symptoms are not consistent with UC even though he was told of this by investigation elsewhere. Will need old records. He may have had a self limited infection in light of the absence of symptoms. Reports mostly constipation. (3) HIV antibody positive Current Visit: Yes Status: Acute Plan to address problem: Patient was informed. Discussed at length. Advised that more evaluation and therapy will be needed. Subjective Date of service: 04/09/17 Principal diagnosis: Ulcerative colitis Interval history: Feels a lot better today. Notes he has had no recent diarrhea, more constipation. No blood in the stool. Objective - Constitutional Vitals: Temp Pulse Resp BP Pulse Ox 99.6 F 85 20 118/69 98 04/09/17 07:16 04/09/17 07:16 04/09/17 07:16 04/09/17 07:16 04/09/17 07:16 General appearance: no acute distress - EENT ENT: hearing intact, clear oral mucosa, dentition normal - Neck Neck: supple, normal ROM - Respiratory Respiratory effort: normal Respiratory: bilateral: CTA - Cardiovascular Rhythm: regular - Extremities Extremities: pulses intact, No edema, normal color, Full ROM - Gastrointestinal General gastrointestinal: Present: soft, non-tender, non-distended, normal bowel sounds - Neurologic Neurological: alert and oriented x3 - Labs CBC & Chem 7: 04/08/17 03:07 04/08/17 03:07 Labs: Laboratory Results - last 24 hr 04/08/17 17:22 HIV 1&2 Antibody Rapid Reactive HIV P24 Antigen Non react
--- NOTE | 2017-04-09 15:38 | Progress Note ---
Assessment and Plan Assessment and plan: Patient is a 26-year-old man with a history of tobacco dependency, marijuana use and ulcerative colitis, diagnosed July 2016 at [facility] with a colonoscopy at that time who presents to the [facility] emergency department with severe sharp constant right lower generalized abdominal pains that started about 5 days ago radiating across lower abdomen to the lower back, the pain became unbearable over the last 24hours associated with nausea without vomiting , constipation, subjective fevers and chills. He denies any cough, chest pain, severe headaches. 2-3v LS spine reported as normal examination CT abd/pelvis w/ constrast reported as Centrally necrotic lymph nodes versus abscesses within the retroperitoneum and perirectal fat measuring up to 16 millimeters in greatest individual dimension, as detailed above. Correlation with immune status and symptoms and history of gastrointestinal inflammation/ infection is requested. Malignancy could appear similar but is thought less likely. There is suggested mild edematous rectal wall thickening and infiltration of the perirectal fat. Gastroenterology consultation may be helpful for initial further evaluation. Dr. Sarkar discussed findings with CHELSEY Rollins at [address]803 [address] Time on 04/08/2017 immediately following the examination. -Abd pains most likely HIV related maybe associated with stopping smoking: consulted GI -HIV positive: consult ID -Mesenteric LAD: GI is following, HIV + Interferon gold pending for TB -Hypotension: treat with IVF -Constipation: miralax Await [facility]. History Interval history: Pt seen and examined, follow up abd pains. No new issues Hospitalist Physical - Physical exam Narrative exam: GEN: WDWN, NAD, AWAKE, ALERT, ORIENTATED 3 HEENT: NCAT, EOMI, PERRL, OP Clear NECK: supple, no adenopathy, no thyromegaly, no JVD CVS/HEART: RRR, NORMAL S1S2, pulses present bilaterally CHEST/LUNGS: CTA B, Symmetrical chest expansion, good air entry bilaterally GI/Abdomen: soft, nondistended, diffuse tenderness with guarding, good bowel sounds, no rebound /Bladder: no suprapubic tenderness, no CVA or paraspinal tenderness EXT/Skin: no c/c/e, no obvious rash MSK: FROM x 4 Neuro: CN 2-12 grossly intact, no new focal deficits Psych: just was told he is HIV by Dr. Barrios, he is in shock right now, denies SI , HI - Constitutional Vitals: Temp Pulse Resp BP Pulse Ox 99.6 F 85 20 118/69 98 04/09/17 07:16 04/09/17 07:16 04/09/17 07:16 04/09/17 07:16 04/09/17 07:16 Results - Labs CBC & Chem 7: 04/08/17 03:07 04/08/17 03:07 Labs: Laboratory Last Values WBC 10.2 K/mm3 (4.5-11.0) 04/08/17 03:07 RBC 4.19 M/mm3 (3.65-5.03) 04/08/17 03:07 Hgb 13.0 gm/dl (11.8-15.2) 04/08/17 03:07 Hct 37.9 % (35.5-45.6) 04/08/17 03:07 MCV 90 fl (84-94) 04/08/17 03:07 MCH 31 pg (28-32) 04/08/17 03:07 MCHC 34 % (32-34) 04/08/17 03:07 RDW 13.1 % (13.2-15.2) L 04/08/17 03:07 Plt Count 210 K/mm3 (140-440) 04/08/17 03:07 Add Manual Diff Complete 04/08/17 03:07 Total Counted 100 04/08/17 03:07 Seg Neuts % (Manual) 60.0 % (40.0-70.0) 04/08/17 03:07 Band Neutrophils % 4.0 % 04/08/17 03:07 Lymphocytes % (Manual) 24.0 % (13.4-35.0) 04/08/17 03:07 Reactive Lymphs % (Man) 0 % 04/08/17 03:07 Monocytes % (Manual) 12.0 % (0.0-7.3) H 04/08/17 03:07 Eosinophils % (Manual) 0 % (0.0-4.3) 04/08/17 03:07 Basophils % (Manual) 0 % (0.0-1.8) 04/08/17 03:07 Metamyelocytes % 0 % 04/08/17 03:07 Myelocytes % 0 % 04/08/17 03:07 Promyelocytes % 0 % 04/08/17 03:07 Blast Cells % 0 % 04/08/17 03:07 Nucleated RBC % Not Reportable 04/08/17 03:07 Seg Neutrophils # Man 6.1 K/mm3 (1.8-7.7) 04/08/17 03:07 Band Neutrophils # 0.4 K/mm3 04/08/17 03:07 Lymphocytes # (Manual) 2.4 K/mm3 (1.2-5.4) 04/08/17 03:07 Abs React Lymphs (Man) 0.0 K/mm3 04/08/17 03:07 Monocytes # (Manual) 1.2 K/mm3 (0.0-0.8) H 04/08/17 03:07 Eosinophils # (Manual) 0.0 K/mm3 (0.0-0.4) 04/08/17 03:07 Basophils # (Manual) 0.0 K/mm3 (0.0-0.1) 04/08/17 03:07 Metamyelocytes # 0.0 K/mm3 04/08/17 03:07 Myelocytes # 0.0 K/mm3 04/08/17 03:07 Promyelocytes # 0.0 K/mm3 04/08/17 03:07 Blast Cells # 0.0 K/mm3 04/08/17 03:07 WBC Morphology Not Reportable 04/08/17 03:07 Hypersegmented Neuts Not Reportable 04/08/17 03:07 Hyposegmented Neuts Not Reportable 04/08/17 03:07 Hypogranular Neuts Not Reportable 04/08/17 03:07 Smudge Cells Not Reportable 04/08/17 03:07 Toxic Granulation Not Reportable 04/08/17 03:07 Toxic Vacuolation Not Reportable 04/08/17 03:07 Dohle Bodies Not Reportable 04/08/17 03:07 Pelger-Huet Anomaly Not Reportable 04/08/17 03:07 Dougie Rods Not Reportable 04/08/17 03:07 Platelet Estimate Appears normal 04/08/17 03:07 Clumped Platelets Not Reportable 04/08/17 03:07 Plt Clumps, EDTA Not Reportable 04/08/17 03:07 Large Platelets Few 04/08/17 03:07 Giant Platelets Not Reportable 04/08/17 03:07 Platelet Satelliting Not Reportable 04/08/17 03:07 Plt Morphology Comment Not Reportable 04/08/17 03:07 RBC Morphology Not Reportable 04/08/17 03:07 Dimorphic RBCs Not Reportable 04/08/17 03:07 Polychromasia Not Reportable 04/08/17 03:07 Hypochromasia 1+ 04/08/17 03:07 Poikilocytosis Not Reportable 04/08/17 03:07 Anisocytosis 1+ 04/08/17 03:07 Microcytosis Not Reportable 04/08/17 03:07 Macrocytosis Not Reportable 04/08/17 03:07 Spherocytes Not Reportable 04/08/17 03:07 Pappenheimer Bodies Not Reportable 04/08/17 03:07 Sickle Cells Not Reportable 04/08/17 03:07 Target Cells Not Reportable 04/08/17 03:07 Tear Drop Cells Not Reportable 04/08/17 03:07 Ovalocytes Not Reportable 04/08/17 03:07 Helmet Cells Not Reportable 04/08/17 03:07 Goodman-[place] Bodies Not Reportable 04/08/17 03:07 [place] Rings Not Reportable 04/08/17 03:07 [place] Cells Not Reportable 04/08/17 03:07 Bite Cells Not Reportable 04/08/17 03:07 Crenated Cell Not Reportable 04/08/17 03:07 Elliptocytes Not Reportable 04/08/17 03:07 Acanthocytes (Spur) Not Reportable 04/08/17 03:07 Rouleaux Not Reportable 04/08/17 03:07 Hemoglobin C Crystals Not Reportable 04/08/17 03:07 Schistocytes Not Reportable 04/08/17 03:07 Malaria parasites Not Reportable 04/08/17 03:07 Bay Bodies Not Reportable 04/08/17 03:07 Hem Pathologist Commnt No 04/08/17 03:07 Sodium 136 mmol/L (137-145) L 04/08/17 03:07 Potassium 4.4 mmol/L (3.6-5.0) 04/08/17 03:07 Chloride 98.6 mmol/L (98-107) 04/08/17 03:07 Carbon Dioxide 26 mmol/L (22-30) 04/08/17 03:07 Anion Gap 16 mmol/L 04/08/17 03:07 BUN 11 mg/dL (9-20) 04/08/17 03:07 Creatinine 0.9 mg/dL (0.8-1.5) 04/08/17 03:07 Estimated GFR > 60 ml/min 04/08/17 03:07 BUN/Creatinine Ratio 12 % 04/08/17 03:07 Glucose 88 mg/dL (75-100) 04/08/17 03:07 Lactic Acid 0.70 mmol/L (0.7-2.0) 04/08/17 08:38 Calcium 8.8 mg/dL (8.4-10.2) 04/08/17 03:07 Total Bilirubin 0.30 mg/dL (0.1-1.2) 04/08/17 03:07 AST 34 units/L (5-40) 04/08/17 03:07 ALT 43 units/L (7-56) 04/08/17 03:07 Alkaline Phosphatase 119 units/L (35-129) 04/08/17 03:07 Total Creatine Kinase 137 units/L (55-170) 04/08/17 08:38 Total Protein 8.5 g/dL (6.3-8.2) H 04/08/17 03:07 Albumin 3.7 g/dL (3.9-5) L 04/08/17 03:07 Albumin/Globulin Ratio 0.8 % 04/08/17 03:07 Lipase 19 units/L (13-60) 04/08/17 03:07 Urine Color Yellow (Yellow) 04/08/17 Unknown Urine Turbidity Clear (Clear) 04/08/17 Unknown Urine pH 5.0 (5.0-7.0) 04/08/17 Unknown Ur Specific [place] 1.034 (1.003-1.030) H 04/08/17 Unknown Urine Protein <15 mg/dl mg/dL (Negative) 04/08/17 Unknown Urine Glucose (UA) Neg mg/dL (Negative) 04/08/17 Unknown Urine Ketones Neg mg/dL (Negative) 04/08/17 Unknown Urine Blood Neg (Negative) 04/08/17 Unknown Urine Nitrite Neg (Negative) 04/08/17 Unknown Urine Bilirubin Neg (Negative) 04/08/17 Unknown Urine Urobilinogen 4.0 mg/dL (<2.0) 04/08/17 Unknown Ur Leukocyte Esterase Neg (Negative) 04/08/17 Unknown Urine WBC (Auto) < 1.0 /HPF (0.0-6.0) 04/08/17 Unknown Urine RBC (Auto) 3.0 /HPF (0.0-6.0) 04/08/17 Unknown U Epithel Cells (Auto) < 1.0 /HPF (0-13.0) 04/08/17 Unknown Urine Mucus 1+ /HPF 04/08/17 Unknown Hep Bs Antigen Non-reactive (Negative) 04/08/17 13:20 Hepatitis C Antibody Non-reactive (NonReactive) 04/08/17 13:20 HIV 1&2 Antibody Rapid Reactive (Non React) 04/08/17 17:22 HIV P24 Antigen Non react (Non React) 04/08/17 17:22
[2017-04-09] MEDS: LEVAQUIN PO SCH (16:00)
[2017-04-10] MEDS: NACL 0.9% 1000 ML 1,000 ML IV SCH (01:56)
[2017-04-10] MEDS: MORPHINE IV PRN ×3 (05:29→21:01)
[2017-04-10 05:40] LABS: Hematocrit 36.3 % (35.5-45.6); Hemoglobin 12.5 gm/dl (11.8-15.2); Mean Corpuscular HGB Conc 35 % (32-34); Mean Corpuscular Hemoglobin 31 pg (28-32); Mean Corpuscular Volume 89 fl (84-94); Platelet Count 239 K/mm3 (140-440); Red Blood Count 4.09 M/mm3 (3.65-5.03); Red Cell Distribution Width 13.3 % (13.2-15.2)
[2017-04-10 06:00] LABS: BUN/Creatinine Ratio 9; Blood Urea Nitrogen 7 mg/dL (9-20); Calcium 8.4 mg/dL (8.4-10.2); Hemolysis Index 2
[2017-04-10] MEDS: LEVAQUIN PO SCH (09:09)
--- NOTE | 2017-04-10 13:52 | Progress Note ---
Assessment and Plan Assessment and plan: Patient is a 26-year-old man with a history of tobacco dependency, marijuana use and ulcerative colitis, diagnosed July 2016 at [facility] with a colonoscopy at that time who presents to the [facility] emergency department with severe sharp constant right lower generalized abdominal pains that started about 5 days ago radiating across lower abdomen to the lower back, the pain became unbearable over the last 24hours associated with nausea without vomiting , constipation, subjective fevers and chills. He denies any cough, chest pain, severe headaches. 2-3v LS spine reported as normal examination CT abd/pelvis w/ constrast reported as Centrally necrotic lymph nodes versus abscesses within the retroperitoneum and perirectal fat measuring up to 16 millimeters in greatest individual dimension, as detailed above. Correlation with immune status and symptoms and history of gastrointestinal inflammation/ infection is requested. Malignancy could appear similar but is thought less likely. There is suggested mild edematous rectal wall thickening and infiltration of the perirectal fat. Gastroenterology consultation may be helpful for initial further evaluation. Dr. Sarkar discussed findings with CHELSEY Rollins at [address] Time on 04/08/2017 immediately following the examination. -Abd pains most likely HIV related maybe associated with stopping smoking: consulted GI -HIV positive: consult ID -Mesenteric LAD: GI is following, HIV + Interferon gold pending for TB -Hypotension: treat with IVF -Constipation: miralax Await [facility]. History Interval history: Pt seen and examined, follow up abd pains. No new issues Hospitalist Physical - Physical exam Narrative exam: GEN: WDWN, NAD, AWAKE, ALERT, ORIENTATED 3 HEENT: NCAT, EOMI, PERRL, OP Clear NECK: supple, no adenopathy, no thyromegaly, no JVD CVS/HEART: RRR, NORMAL S1S2, pulses present bilaterally CHEST/LUNGS: CTA B, Symmetrical chest expansion, good air entry bilaterally GI/Abdomen: soft, nondistended, diffuse tenderness with guarding, good bowel sounds, no rebound /Bladder: no suprapubic tenderness, no CVA or paraspinal tenderness EXT/Skin: no c/c/e, no obvious rash MSK: FROM x 4 Neuro: CN 2-12 grossly intact, no new focal deficits Psych: just was told he is HIV by Dr. Barrios, he is in shock right now, denies SI , HI - Constitutional Vitals: Temp Pulse Resp BP Pulse Ox 99.0 F 90 18 107/63 97 04/10/17 07:39 04/10/17 07:39 04/10/17 07:39 04/10/17 07:39 04/10/17 07:39 Results - Labs CBC & Chem 7: 04/10/17 05:16 04/10/17 05:16 Labs: Laboratory Last Values WBC 7.1 K/mm3 (4.5-11.0) 04/10/17 05:16 RBC 4.09 M/mm3 (3.65-5.03) 04/10/17 05:16 Hgb 12.5 gm/dl (11.8-15.2) 04/10/17 05:16 Hct 36.3 % (35.5-45.6) 04/10/17 05:16 MCV 89 fl (84-94) 04/10/17 05:16 MCH 31 pg (28-32) 04/10/17 05:16 MCHC 35 % (32-34) H 04/10/17 05:16 RDW 13.3 % (13.2-15.2) 04/10/17 05:16 Plt Count 239 K/mm3 (140-440) 04/10/17 05:16 Add Manual Diff Complete 04/08/17 03:07 Total Counted 100 04/08/17 03:07 Seg Neuts % (Manual) 60.0 % (40.0-70.0) 04/08/17 03:07 Band Neutrophils % 4.0 % 04/08/17 03:07 Lymphocytes % (Manual) 24.0 % (13.4-35.0) 04/08/17 03:07 Reactive Lymphs % (Man) 0 % 04/08/17 03:07 Monocytes % (Manual) 12.0 % (0.0-7.3) H 04/08/17 03:07 Eosinophils % (Manual) 0 % (0.0-4.3) 04/08/17 03:07 Basophils % (Manual) 0 % (0.0-1.8) 04/08/17 03:07 Metamyelocytes % 0 % 04/08/17 03:07 Myelocytes % 0 % 04/08/17 03:07 Promyelocytes % 0 % 04/08/17 03:07 Blast Cells % 0 % 04/08/17 03:07 Nucleated RBC % Not Reportable 04/08/17 03:07 Seg Neutrophils # Man 6.1 K/mm3 (1.8-7.7) 04/08/17 03:07 Band Neutrophils # 0.4 K/mm3 04/08/17 03:07 Lymphocytes # (Manual) 2.4 K/mm3 (1.2-5.4) 04/08/17 03:07 Abs React Lymphs (Man) 0.0 K/mm3 04/08/17 03:07 Monocytes # (Manual) 1.2 K/mm3 (0.0-0.8) H 04/08/17 03:07 Eosinophils # (Manual) 0.0 K/mm3 (0.0-0.4) 04/08/17 03:07 Basophils # (Manual) 0.0 K/mm3 (0.0-0.1) 04/08/17 03:07 Metamyelocytes # 0.0 K/mm3 04/08/17 03:07 Myelocytes # 0.0 K/mm3 04/08/17 03:07 Promyelocytes # 0.0 K/mm3 04/08/17 03:07 Blast Cells # 0.0 K/mm3 04/08/17 03:07 WBC Morphology Not Reportable 04/08/17 03:07 Hypersegmented Neuts Not Reportable 04/08/17 03:07 Hyposegmented Neuts Not Reportable 04/08/17 03:07 Hypogranular Neuts Not Reportable 04/08/17 03:07 Smudge Cells Not Reportable 04/08/17 03:07 Toxic Granulation Not Reportable 04/08/17 03:07 Toxic Vacuolation Not Reportable 04/08/17 03:07 Dohle Bodies Not Reportable 04/08/17 03:07 Pelger-Huet Anomaly Not Reportable 04/08/17 03:07 Dougie Rods Not Reportable 04/08/17 03:07 Platelet Estimate Appears normal 04/08/17 03:07 Clumped Platelets Not Reportable 04/08/17 03:07 Plt Clumps, EDTA Not Reportable 04/08/17 03:07 Large Platelets Few 04/08/17 03:07 Giant Platelets Not Reportable 04/08/17 03:07 Platelet Satelliting Not Reportable 04/08/17 03:07 Plt Morphology Comment Not Reportable 04/08/17 03:07 RBC Morphology Not Reportable 04/08/17 03:07 Dimorphic RBCs Not Reportable 04/08/17 03:07 Polychromasia Not Reportable 04/08/17 03:07 Hypochromasia 1+ 04/08/17 03:07 Poikilocytosis Not Reportable 04/08/17 03:07 Anisocytosis 1+ 04/08/17 03:07 Microcytosis Not Reportable 04/08/17 03:07 Macrocytosis Not Reportable 04/08/17 03:07 Spherocytes Not Reportable 04/08/17 03:07 Pappenheimer Bodies Not Reportable 04/08/17 03:07 Sickle Cells Not Reportable 04/08/17 03:07 Target Cells Not Reportable 04/08/17 03:07 Tear Drop Cells Not Reportable 04/08/17 03:07 Ovalocytes Not Reportable 04/08/17 03:07 Helmet Cells Not Reportable 04/08/17 03:07 Goodman-[place] Bodies Not Reportable 04/08/17 03:07 [place] Rings Not Reportable 04/08/17 03:07 Bates Cells Not Reportable 04/08/17 03:07 Bite Cells Not Reportable 04/08/17 03:07 Crenated Cell Not Reportable 04/08/17 03:07 Elliptocytes Not Reportable 04/08/17 03:07 Acanthocytes (Spur) Not Reportable 04/08/17 03:07 Rouleaux Not Reportable 04/08/17 03:07 Hemoglobin C Crystals Not Reportable 04/08/17 03:07 Schistocytes Not Reportable 04/08/17 03:07 Malaria parasites Not Reportable 04/08/17 03:07 Bay Bodies Not Reportable 04/08/17 03:07 Hem Pathologist Commnt No 04/08/17 03:07 Sodium 138 mmol/L (137-145) 04/10/17 05:16 Potassium 4.0 mmol/L (3.6-5.0) 04/10/17 05:16 Chloride 100.5 mmol/L (98-107) 04/10/17 05:16 Carbon Dioxide 25 mmol/L (22-30) 04/10/17 05:16 Anion Gap 17 mmol/L 04/10/17 05:16 BUN 7 mg/dL (9-20) L 04/10/17 05:16 Creatinine 0.8 mg/dL (0.8-1.5) 04/10/17 05:16 Estimated GFR > 60 ml/min 04/10/17 05:16 BUN/Creatinine Ratio 9 % 04/10/17 05:16 Glucose 89 mg/dL (75-100) 04/10/17 05:16 Lactic Acid 0.70 mmol/L (0.7-2.0) 04/08/17 08:38 Calcium 8.4 mg/dL (8.4-10.2) 04/10/17 05:16 Total Bilirubin 0.30 mg/dL (0.1-1.2) 04/08/17 03:07 AST 34 units/L (5-40) 04/08/17 03:07 ALT 43 units/L (7-56) 04/08/17 03:07 Alkaline Phosphatase 119 units/L (35-129) 04/08/17 03:07 Total Creatine Kinase 137 units/L (55-170) 04/08/17 08:38 Total Protein 8.5 g/dL (6.3-8.2) H 04/08/17 03:07 Albumin 3.7 g/dL (3.9-5) L 04/08/17 03:07 Albumin/Globulin Ratio 0.8 % 04/08/17 03:07 Lipase 19 units/L (13-60) 04/08/17 03:07 Urine Color Yellow (Yellow) 04/08/17 Unknown Urine Turbidity Clear (Clear) 04/08/17 Unknown Urine pH 5.0 (5.0-7.0) 04/08/17 Unknown Ur Specific [place] 1.034 (1.003-1.030) H 04/08/17 Unknown Urine Protein <15 mg/dl mg/dL (Negative) 04/08/17 Unknown Urine Glucose (UA) Neg mg/dL (Negative) 04/08/17 Unknown Urine Ketones Neg mg/dL (Negative) 04/08/17 Unknown Urine Blood Neg (Negative) 04/08/17 Unknown Urine Nitrite Neg (Negative) 04/08/17 Unknown Urine Bilirubin Neg (Negative) 04/08/17 Unknown Urine Urobilinogen 4.0 mg/dL (<2.0) 04/08/17 Unknown Ur Leukocyte Esterase Neg (Negative) 04/08/17 Unknown Urine WBC (Auto) < 1.0 /HPF (0.0-6.0) 04/08/17 Unknown Urine RBC (Auto) 3.0 /HPF (0.0-6.0) 04/08/17 Unknown U Epithel Cells (Auto) < 1.0 /HPF (0-13.0) 04/08/17 Unknown Urine Mucus 1+ /HPF 04/08/17 Unknown Hep Bs Antigen Non-reactive (Negative) 04/08/17 13:20 Hepatitis C Antibody Non-reactive (NonReactive) 04/08/17 13:20 HIV 1&2 Antibody Rapid Reactive (Non React) 04/08/17 17:22 HIV P24 Antigen Non react (Non React) 04/08/17 17:22
--- NOTE | 2017-04-10 16:01 | Gastroenterology Progress Note ---
Assessment and Plan - Patient Problems (1) Mesenteric lymphadenopathy Current Visit: Yes Status: Acute (2) Ulcerative colitis Current Visit: Yes Status: Acute Qualifiers: Ulcerative colitis location: other ulcerative colitis Digestive disease complication type: other complication Qualified Code(s): K51.818 - Other ulcerative colitis with other complication Plan to address problem: History of UC, however the symptoms do not suggest IBD. He is constipated. No bleeding. No inpatient GI studies are needed. I will s/o at this point and f/u in the office in a month. (3) HIV antibody positive Current Visit: Yes Status: Acute Plan to address problem: Patient reports still processing this information. Await ID consultation. Subjective Date of service: 04/10/17 Principal diagnosis: Ulcerative colitis Interval history: Feels ok. Mild back pain and abdominal discomfort. No diarrhea. Reports constipation. Objective - Constitutional Vitals: Temp Pulse Resp BP Pulse Ox 99.0 F 90 18 107/63 97 04/10/17 07:39 04/10/17 07:39 04/10/17 07:39 04/10/17 07:39 04/10/17 07:39 General appearance: no acute distress - EENT ENT: hearing intact, clear oral mucosa, dentition normal - Respiratory Respiratory effort: normal Respiratory: bilateral: CTA - Gastrointestinal General gastrointestinal: Present: soft, non-tender, non-distended, normal bowel sounds - Integumentary Integumentary: Present: clear, warm, dry - Neurologic Neurological: alert and oriented x3 - Labs CBC & Chem 7: 04/10/17 05:16 04/10/17 05:16 Labs: Laboratory Results - last 24 hr 04/10/17 04/10/17 05:16 05:16 WBC 7.1 RBC 4.09 Hgb 12.5 Hct 36.3 MCV 89 MCH 31 MCHC 35 H RDW 13.3 Plt Count 239 Sodium 138 Potassium 4.0 Chloride 100.5 Carbon Dioxide 25 Anion Gap 17 BUN 7 L Creatinine 0.8 Estimated GFR > 60 BUN/Creatinine Ratio 9 Glucose 89 Calcium 8.4
[2017-04-10] MEDS: FLAGYL 500 MG/100 ML 500 MG/100 ML BAG IV SCH (16:22)
--- NOTE | 2017-04-10 19:08 | Consultation ---
History of Present Illness - Reason for Consult Consult date: 04/10/17 New dx of HIV Requesting physician: ZION CHAVEZ - History of Present Illness 26 yo M PMH tobacco dependency, marijuana use and ulcerative colitis, diagnosed July 2016 at [facility] with a colonoscopy at that time, syphilis September 2016, s/p treatment with PCN injections as per pt, who presented to the [facility] emergency department 04/08/18 with about 5 days h/o of severe abdominal pain , radiating to the lower back. Had nausea. Denied vomiting, diarrhea, subjective fevers and chills, dysuria, cough, chest pain, URI symptoms, weight loss, thrush, dysphagia. Has good appetite. In the ER his temperature was 99.2 , then spiked 100.2, pulse 77, respirations 20, saturation 98% on room air, blood pressure 112/62. WBC was 10.2, H&H was 13.0 and 37.9, platelets were 210. Bun and creatinine were 11 and 0.9. Urinalysis is negative. Blood cultures from 04/08 are no growth to date. Occult blood in stool was negative. His HIV rapid test came back reactive. He has been on levofloxacin and Flagyl. He had an x-ray of the lumbar spine which was normal. He also had a CT of the abdomen and pelvis that showed centrally necrotic lymph nodes versus abscesses within the retroperitoneum and perirectal fat. Infectious diseases service consulted due to new positive HIV test. Microbiology: Blood cultures: 04/08 NGTD Current Antimicrobials: Levaquin 04/08- Metronidazole 04/08- Past History Past Medical History: other (Ulcerative colitis, syphilis September 2016) Past Surgical History: No surgical history, Other (Ear surgery) Social history: smoking, alcohol abuse, other (Smokes cigarrettes. Uses marijuana occasionally. Denies IVDU. He has sex with men only. Last time sex with female he was 16 years old. Has had 4 sex partner is last year. Does not use protection.). denies: prescription drug abuse Family history: no significant family history Medications and Allergies Allergies Allergy/AdvReac Type Severity Reaction Status Date / Time ibuprofen [From Advil] Allergy Hives Verified 04/08/17 10:09 Penicillins Allergy Rash Verified 04/08/17 10:09 Sulfa (Sulfonamide Allergy Rash Verified 04/08/17 10:09 Antibiotics) tramadol AdvReac Diarrhea Verified 04/08/17 10:09 Home Medications Medication Instructions Recorded Confirmed Last Taken Type HYDROcodone/ACETAMINOPHEN [Wallis 1 each PO Q6HR PRN #20 tablet 03/10/13 Unknown Rx 5/325 Tablet] Metaxalone [Skelaxin] 800 mg PO TID #30 tablet 03/10/13 Unknown Rx Polymyxin B Sulf/Trimethoprim 1 drop OS DAILY #1 drops 01/24/17 Unknown Rx [Polytrim Eye Drops] Acetaminophen/Codeine [Tylenol 1 tab PO Q6H PRN #12 tab 03/02/17 Unknown Rx /Codeine # 3 tab] Active Meds: Active Medications Sodium Chloride (Nacl 0.9% 1000 Ml) 1,000 mls @ 150 mls/hr IV DIRECT RICHARD Last Admin: 04/10/17 01:56 Dose: 150 mls/hr Sodium Chloride (Nacl 0.9% 1000 Ml) 1,000 mls @ 100 mls/hr IV DIRECT RICHARD Metronidazole (Flagyl 500 Mg/100 Ml) 500 mg in 100 mls @ 200 mls/hr IV Q8HR RICHARD Last Admin: 04/10/17 16:22 Dose: 200 mls/hr Levofloxacin (Levaquin) 500 mg PO Q24HR RICHARD Last Admin: 04/10/17 09:09 Dose: 500 mg Morphine Sulfate (Morphine) 2 mg IV Q4H PRN PRN Reason: Pain , Severe (7-10) Last Admin: 04/10/17 09:05 Dose: 2 mg Review of Systems All systems: negative (as per HPI.) Physical Examination - Physical Exam Narrative exam: General appearance: Alert in NAD, conversant Eyes: anicteric sclerae, moist conjunctivae; no lid-lag; PERRLA HENT: Atraumatic; oropharynx clear with moist mucous membranes and no mucosal ulcerations/no oral thrush; normal hard and soft palate. Normal external ears. No thrush. Neck: Trachea midline; supple Lungs: CTA, with normal respiratory effort and no intercostal retractions CV: RRR, no murmurs Abdomen: Soft, + BS. Mildly tender to palpation. Extremities: No c/c/e. Skin: Normal temperature, turgor and texture; no rash, ulcers or subcutaneous nodules Psych: Appropriate affect, alert and oriented to person, place and time. Neuro: alert and oriented x 3. Moving all extremities Lines: No CVL / PICC - Constitutional Vitals: Vital Signs Temp Pulse Resp BP Pulse Ox 98.7 F 77 18 120/75 98 04/10/17 15:08 04/10/17 15:08 04/10/17 15:08 04/10/17 15:08 04/10/17 15:08 Temperature -Last 24 Hours Temperature 98.7 F Temperature 99.0 F Temperature 98.4 F Results - Labs CBC & Chem 7: 04/10/17 05:16 04/10/17 05:16 Labs: Abnormal lab results 04/10/17 04/10/17 Range/Units 05:16 05:16 MCHC 35 H (32-34) % BUN 7 L (9-20) mg/dL - Imaging and Cardiology CT scan - abdomen: report reviewed Assessment and Plan Assessment: 1) Positive rapid HIV test. Risk factor MSM. Has had unprotected sex with 4 different partners last year. Also had syphilis which is frequently associated with HIV. 2) Abnormal CT A/P with centrally necrotic lymph nodes versus abscesses with a retroperitoneal and perirectal fat. ?TB, ?atyical mycobacteria. 3) Abdominal pain - ? due to 2). 4) Questionable history of ulcerative colitis 5) History of syphilis in September 2016, which was treated per the patient with 3 injections of IM of penicillin 6) History of tobacco use and marijuana use. 7) History of penicillin allergy. As per patient when he had penicillin to treat syphilis last year he had just some mild hives. Plan: -We will follow confirmatory HIV test. -Will follow QuantiFERON test. -check HIV viral load, HIV genotype, CD4 count, HLA B 5701, RPR. -check Cryptococcal serum antigen. -Check GC-chlamydia DNA in urine. -Will ask interventional radiology to review CT of the abdomen and pelvis and consider a biopsy/aspiration of the lymph nodes. -If confirmatory HIV test is positive patient will need to inform his previous sexual partners -Continue levofloxacin and flagyl for now. -Discussed with patient, GI, medicine attending. Thank you for your consultation, will follow up with you. Ayla Catalan MD Infectious Diseases Specialist [facility]) [phone]
[2017-04-11] MEDS: MORPHINE IV PRN ×4 (03:13→22:39)
[2017-04-11] MEDS: NACL 0.9% 1000 ML 1,000 ML IV SCH (06:22)
[2017-04-11] MEDS: FLAGYL 500 MG/100 ML 500 MG/100 ML BAG IV SCH ×2 (06:23→07:05)
--- NOTE | 2017-04-11 09:00 | Progress Note ---
<ABIMAEL DEAL - Last Filed: 04/11/17 15:34> Assessment and Plan Assessment: 1) Positive rapid HIV test. Risk factor MSM. Has had unprotected sex with 4 different partners last year. Also had syphilis which is frequently associated with HIV. -HIV 1&2 antibody rapid, reactive -Hepatitis panel, non reactive -Cryptococcal serum antigen 04/11 negative -RPR 1:64 2) Ab[address] CT A/P with centrally necrotic lymph nodes versus abscesses with a retroperitoneal and perirectal fat. ?TB, ?atyical mycobacteria. 3) Abdominal pain - ? due to 2). 4) Questionable history of ulcerative colitis 5) History of syphilis in September 2016, which was treated per the patient with 3 injections of IM of penicillin 6) History of tobacco use and marijuana use. 7) History of penicillin allergy. As per patient when he had penicillin to treat syphilis last year he had just some mild hives. Plan: -follow up confirmatory HIV -follow up QuantiFERON, received -check HIV viral load, HIV genotype, CD4 count, HLA B 5701, received -follow up GC-chlamydia DNA in urine, received in lab -Will ask interventional radiology to review CT of the abdomen and pelvis and consider a biopsy/aspiration of the lymph nodes. Per Dr. Huff, d/w Dr. Laney Underwood who directed me to speak with Dr. Choi, he is unable to get sample because lymph node to close to the Aorta. -If confirmatory HIV test is positive patient will need to inform his previous sexual partners and will need HIV clinic -Continue levofloxacin and flagyl day 4 Thank you for your consultation, will follow up with you. Abimael Deal NP for Ayla Catalan MD Infectious Diseases Specialist [facility] [phone] Subjective Date of service: 04/11/17 Principal diagnosis: Ulcerative colitis Interval history: I have a very good night, no fever Microbiology: Blood cultures: 04/08 NGTD Current Antimicrobials: Levaquin 04/08- Metronidazole 04/08- Objective - Exam Narrative Exam: General appearance: Alert in NAD, conversant Eyes: anicteric sclerae, moist conjunctivae; no lid-lag; PERRLA HENT: Atraumatic; oropharynx clear with moist mucous membranes and no mucosal ulcerations/no oral thrush Neck: Trachea midline; supple Lungs: CTA, with normal respiratory effort and no intercostal retractions CV: RRR, no murmurs Abdomen: Soft, + BS. Mildly tender to palpation. Extremities: RROM Skin: Normal temperature, turgor and texture; no rash, ulcers or subcutaneous nodules Psych: Appropriate affect, calm and cooperative Neuro: alert and oriented x 3. Moving all extremities Lines: No CVL / PICC - Constitutional Vitals: Vital Signs Temp Pulse Resp BP Pulse Ox 98.8 F 84 20 107/65 100 04/11/17 07:20 04/11/17 07:20 04/11/17 07:20 04/11/17 07:20 04/11/17 07:20 Temperature -Last 24 Hours Temperature 98.8 F Temperature 98.7 F - Labs CBC & Chem 7: 04/10/17 05:16 04/10/17 05:16 <AYLA CATALAN - Last Filed: 04/11/17 17:23> Objective - Constitutional Vitals: Vital Signs Temp Pulse Resp BP Pulse Ox 97.9 F 76 20 109/68 99 04/11/17 15:12 04/11/17 15:12 04/11/17 15:12 04/11/17 15:12 04/11/17 15:12 Temperature -Last 24 Hours Temperature 97.9 F Temperature 98.8 F - Labs CBC & Chem 7: 04/10/17 05:16 04/10/17 05:16
[2017-04-11] MEDS: LEVAQUIN PO SCH (09:53)
--- NOTE | 2017-04-11 11:54 | Progress Note ---
Assessment and Plan Assessment and plan: Patient is a 26-year-old man with a history of tobacco dependency, marijuana use and ulcerative colitis, diagnosed July 2016 at [facility] with a colonoscopy at that time who presents to the [facility] emergency department with severe sharp constant right lower generalized abdominal pains that started about 5 days ago radiating across lower abdomen to the lower back, the pain became unbearable over the last 24 hours associated with nausea without vomiting , constipation, subjective fevers and chills. He denies any cough, chest pain, severe headaches. 2-3v LS spine reported as normal examination CT abd/pelvis w/ constrast reported as Centrally necrotic lymph nodes versus abscesses within the retroperitoneum and perirectal fat measuring up to 16 millimeters in greatest individual dimension, as detailed above. Correlation with immune status and symptoms and history of gastrointestinal inflammation/ infection is requested. Malignancy could appear similar but is thought less likely. There is suggested mild edematous rectal wall thickening and infiltration of the perirectal fat. Gastroenterology consultation may be helpful for initial further evaluation. Dr. Sarkar discussed findings with CHELSEY Rollins at [address] Time on 04/08/2017 immediately following the examination. -Abd pains most likely HIV related maybe associated with stopping smoking: consulted GI -HIV positive: consult ID -Mesenteric LAD: GI is following, HIV + Interferon gold pending for TB -Hypotension: treat with IVF -Constipation: miralax Await [facility]. Await Interferon d/w Dr. Laney Underwood who directed me to speak with Dr. Choi, he is unable to get sample because lymph node to close to the Aorta. History Interval history: Pt seen and examined, follow up abd pains. No new issues Hospitalist Physical - Physical exam Narrative exam: GEN: WDWN, NAD, AWAKE, ALERT, ORIENTATED 3 HEENT: NCAT, EOMI, PERRL, OP Clear NECK: supple, no adenopathy, no thyromegaly, no JVD CVS/HEART: RRR, NORMAL S1S2, pulses present bilaterally CHEST/LUNGS: CTA B, Symmetrical chest expansion, good air entry bilaterally GI/Abdomen: soft, nondistended, diffuse tenderness with guarding, good bowel sounds, no rebound /Bladder: no suprapubic tenderness, no CVA or paraspinal tenderness EXT/Skin: no c/c/e, no obvious rash MSK: FROM x 4 Neuro: CN 2-12 grossly intact, no new focal deficits Psych: just was told he is HIV by Dr. Barrios, he is in shock right now, denies SI , HI - Constitutional Vitals: Temp Pulse Resp BP Pulse Ox 98.8 F 84 20 107/65 100 04/11/17 07:20 04/11/17 07:20 04/11/17 07:20 04/11/17 07:20 04/11/17 07:20 Results - Labs CBC & Chem 7: 04/10/17 05:16 04/10/17 05:16 Labs: Laboratory Last Values WBC 7.1 K/mm3 (4.5-11.0) 04/10/17 05:16 RBC 4.09 M/mm3 (3.65-5.03) 04/10/17 05:16 Hgb 12.5 gm/dl (11.8-15.2) 04/10/17 05:16 Hct 36.3 % (35.5-45.6) 04/10/17 05:16 MCV 89 fl (84-94) 04/10/17 05:16 MCH 31 pg (28-32) 04/10/17 05:16 MCHC 35 % (32-34) H 04/10/17 05:16 RDW 13.3 % (13.2-15.2) 04/10/17 05:16 Plt Count 239 K/mm3 (140-440) 04/10/17 05:16 Add Manual Diff Complete 04/08/17 03:07 Total Counted 100 04/08/17 03:07 Seg Neuts % (Manual) 60.0 % (40.0-70.0) 04/08/17 03:07 Band Neutrophils % 4.0 % 04/08/17 03:07 Lymphocytes % (Manual) 24.0 % (13.4-35.0) 04/08/17 03:07 Reactive Lymphs % (Man) 0 % 04/08/17 03:07 Monocytes % (Manual) 12.0 % (0.0-7.3) H 04/08/17 03:07 Eosinophils % (Manual) 0 % (0.0-4.3) 04/08/17 03:07 Basophils % (Manual) 0 % (0.0-1.8) 04/08/17 03:07 Metamyelocytes % 0 % 04/08/17 03:07 Myelocytes % 0 % 04/08/17 03:07 Promyelocytes % 0 % 04/08/17 03:07 Blast Cells % 0 % 04/08/17 03:07 Nucleated RBC % Not Reportable 04/08/17 03:07 Seg Neutrophils # Man 6.1 K/mm3 (1.8-7.7) 04/08/17 03:07 Band Neutrophils # 0.4 K/mm3 04/08/17 03:07 Lymphocytes # (Manual) 2.4 K/mm3 (1.2-5.4) 04/08/17 03:07 Abs React Lymphs (Man) 0.0 K/mm3 04/08/17 03:07 Monocytes # (Manual) 1.2 K/mm3 (0.0-0.8) H 04/08/17 03:07 Eosinophils # (Manual) 0.0 K/mm3 (0.0-0.4) 04/08/17 03:07 Basophils # (Manual) 0.0 K/mm3 (0.0-0.1) 04/08/17 03:07 Metamyelocytes # 0.0 K/mm3 04/08/17 03:07 Myelocytes # 0.0 K/mm3 04/08/17 03:07 Promyelocytes # 0.0 K/mm3 04/08/17 03:07 Blast Cells # 0.0 K/mm3 04/08/17 03:07 WBC Morphology Not Reportable 04/08/17 03:07 Hypersegmented Neuts Not Reportable 04/08/17 03:07 Hyposegmented Neuts Not Reportable 04/08/17 03:07 Hypogranular Neuts Not Reportable 04/08/17 03:07 Smudge Cells Not Reportable 04/08/17 03:07 Toxic Granulation Not Reportable 04/08/17 03:07 Toxic Vacuolation Not Reportable 04/08/17 03:07 Dohle Bodies Not Reportable 04/08/17 03:07 Pelger-Huet Anomaly Not Reportable 04/08/17 03:07 Dougie Rods Not Reportable 04/08/17 03:07 Platelet Estimate Appears normal 04/08/17 03:07 Clumped Platelets Not Reportable 04/08/17 03:07 Plt Clumps, EDTA Not Reportable 04/08/17 03:07 Large Platelets Few 04/08/17 03:07 Giant Platelets Not Reportable 04/08/17 03:07 Platelet Satelliting Not Reportable 04/08/17 03:07 Plt Morphology Comment Not Reportable 04/08/17 03:07 RBC Morphology Not Reportable 04/08/17 03:07 Dimorphic RBCs Not Reportable 04/08/17 03:07 Polychromasia Not Reportable 04/08/17 03:07 Hypochromasia 1+ 04/08/17 03:07 Poikilocytosis Not Reportable 04/08/17 03:07 Anisocytosis 1+ 04/08/17 03:07 Microcytosis Not Reportable 04/08/17 03:07 Macrocytosis Not Reportable 04/08/17 03:07 Spherocytes Not Reportable 04/08/17 03:07 Pappenheimer Bodies Not Reportable 04/08/17 03:07 Sickle Cells Not Reportable 04/08/17 03:07 Target Cells Not Reportable 04/08/17 03:07 Tear Drop Cells Not Reportable 04/08/17 03:07 Ovalocytes Not Reportable 04/08/17 03:07 Helmet Cells Not Reportable 04/08/17 03:07 [place] Bodies Not Reportable 04/08/17 03:07 [place] Rings Not Reportable 04/08/17 03:07 [place] Cells Not Reportable 04/08/17 03:07 Bite Cells Not Reportable 04/08/17 03:07 Crenated Cell Not Reportable 04/08/17 03:07 Elliptocytes Not Reportable 04/08/17 03:07 Acanthocytes (Spur) Not Reportable 04/08/17 03:07 Rouleaux Not Reportable 04/08/17 03:07 Hemoglobin C Crystals Not Reportable 04/08/17 03:07 Schistocytes Not Reportable 04/08/17 03:07 Malaria parasites Not Reportable 04/08/17 03:07 [place] Bodies Not Reportable 04/08/17 03:07 Hem Pathologist Commnt No 04/08/17 03:07 Sodium 138 mmol/L (137-145) 04/10/17 05:16 Potassium 4.0 mmol/L (3.6-5.0) 04/10/17 05:16 Chloride 100.5 mmol/L (98-107) 04/10/17 05:16 Carbon Dioxide 25 mmol/L (22-30) 04/10/17 05:16 Anion Gap 17 mmol/L 04/10/17 05:16 BUN 7 mg/dL (9-20) L 04/10/17 05:16 Creatinine 0.8 mg/dL (0.8-1.5) 04/10/17 05:16 Estimated GFR > 60 ml/min 04/10/17 05:16 BUN/Creatinine Ratio 9 % 04/10/17 05:16 Glucose 89 mg/dL (75-100) 04/10/17 05:16 Lactic Acid 0.70 mmol/L (0.7-2.0) 04/08/17 08:38 Calcium 8.4 mg/dL (8.4-10.2) 04/10/17 05:16 Total Bilirubin 0.30 mg/dL (0.1-1.2) 04/08/17 03:07 AST 34 units/L (5-40) 04/08/17 03:07 ALT 43 units/L (7-56) 04/08/17 03:07 Alkaline Phosphatase 119 units/L (35-129) 04/08/17 03:07 Total Creatine Kinase 137 units/L (55-170) 04/08/17 08:38 Total Protein 8.5 g/dL (6.3-8.2) H 04/08/17 03:07 Albumin 3.7 g/dL (3.9-5) L 04/08/17 03:07 Albumin/Globulin Ratio 0.8 % 04/08/17 03:07 Lipase 19 units/L (13-60) 04/08/17 03:07 Urine Color Yellow (Yellow) 04/08/17 Unknown Urine Turbidity Clear (Clear) 04/08/17 Unknown Urine pH 5.0 (5.0-7.0) 04/08/17 Unknown Ur Specific [place] 1.034 (1.003-1.030) H 04/08/17 Unknown Urine Protein <15 mg/dl mg/dL (Negative) 04/08/17 Unknown Urine Glucose (UA) Neg mg/dL (Negative) 04/08/17 Unknown Urine Ketones Neg mg/dL (Negative) 04/08/17 Unknown Urine Blood Neg (Negative) 04/08/17 Unknown Urine Nitrite Neg (Negative) 04/08/17 Unknown Urine Bilirubin Neg (Negative) 04/08/17 Unknown Urine Urobilinogen 4.0 mg/dL (<2.0) 04/08/17 Unknown Ur Leukocyte Esterase Neg (Negative) 04/08/17 Unknown Urine WBC (Auto) < 1.0 /HPF (0.0-6.0) 04/08/17 Unknown Urine RBC (Auto) 3.0 /HPF (0.0-6.0) 04/08/17 Unknown U Epithel Cells (Auto) < 1.0 /HPF (0-13.0) 04/08/17 Unknown Urine Mucus 1+ /HPF 04/08/17 Unknown Hep Bs Antigen Non-reactive (Negative) 04/08/17 13:20 Hep B Core Total Ab Nonreactive (Nonreactive) 04/08/17 13:20 Hepatitis C Antibody Non-reactive (NonReactive) 04/08/17 13:20 HIV 1&2 Antibody Rapid Reactive (Non React) 04/08/17 17:22 HIV P24 Antigen Non react (Non React) 04/08/17 17:22
[2017-04-11] MEDS: FLAGYL PO SCH ×2 (14:02→22:39)
[2017-04-12] MEDS ORDERED: MILK OF MAGNESIA PO PRN (03:00)
[2017-04-12] MEDS: MORPHINE IV PRN ×3 (05:45→23:12)
[2017-04-12] MEDS: FLAGYL PO SCH ×3 (05:46→21:25)
[2017-04-12] MEDS: NACL 0.9% 1000 ML 1,000 ML IV SCH ×2 (05:50→14:56)
[2017-04-12] MEDS: LEVAQUIN PO SCH (10:18)
--- NOTE | 2017-04-12 11:25 | Progress Note ---
<ABIMAEL DEAL - Last Filed: 04/12/17 14:42> Assessment and Plan Assessment: 1) Positive rapid HIV test. Risk factor MSM. Has had unprotected sex with 4 different partners last year. Also had syphilis which is frequently associated with HIV. -HIV 1&2 antibody rapid, reactive -Hepatitis panel, non reactive -Cryptococcal serum antigen 04/11 negative -RPR 1:64 reactive -04/08 stool for occult blood negative 2) Abnormal CT A/P with centrally necrotic lymph nodes versus abscesses with a retroperitoneal and perirectal fat. ?TB, ?atyical mycobacteria. -Will ask interventional radiology to review CT of the abdomen and pelvis and consider a biopsy/aspiration of the lymph nodes. Per Dr. Huff, d/w Dr. Laney Underwood who directed me to speak with Dr. Choi, he is unable to get sample because lymph node to close to the Aorta. 3) Abdominal pain - ? due to 2). 4) Questionable history of ulcerative colitis 5) History of syphilis in September 2016, which was treated per the patient with 3 injections of IM of penicillin 6) History of tobacco use and marijuana use. 7) History of penicillin allergy. As per patient when he had penicillin to treat syphilis last year he had just some mild hives. Plan: -follow up confirmatory HIV -follow up QuantiFERON, per lab, results should be in by tomorrow -follow up HIV viral load, HIV genotype, CD4 count, HLA B 5701, per lab, results should be in by Monday -follow up GC-chlamydia DNA in urine, per lab, should have results tomorrow -If confirmatory HIV test is positive patient will need to inform his previous sexual partners and will need HIV clinic -Continue levofloxacin and flagyl day 5 of 7 -request medical records from [facility], faxed Thank you for your consultation, will follow up with you. Abimael Deal NP for Ayla Catalan MD Infectious Diseases Specialist [facility] M [phone] Subjective Date of service: 04/12/17 Principal diagnosis: Ulcerative colitis Interval history: My medical records are at [facility], no fever Microbiology: Blood cultures: 04/08 NGTD 04/08 stool for occult blood negative 04/11 Cryptococcal serum antigen negative Current Antimicrobials: Levaquin 04/08- Metronidazole 04/08- Objective - Exam Narrative Exam: General appearance: Alert in NAD, conversant Eyes: anicteric sclerae, moist conjunctivae; no lid-lag; PERRLA HENT: Atraumatic; oropharynx clear with moist mucous membranes and no mucosal ulcerations/no oral thrush Neck: Trachea midline; supple Lungs: CTA, with normal respiratory effort and no intercostal retractions CV: RRR, no murmurs Abdomen: Soft, + BS. Mildly tender to palpation. Extremities: RROM Skin: Normal temperature, turgor and texture; no rash, ulcers or subcutaneous nodules Psych: Appropriate affect, calm and cooperative Neuro: alert and oriented x 3. Moving all extremities Lines: No CVL / PICC - Constitutional Vitals: Vital Signs Temp Pulse Resp BP Pulse Ox 98.4 F 72 18 112/69 97 04/12/17 07:39 04/12/17 07:39 04/12/17 07:39 04/12/17 07:39 04/12/17 07:39 Temperature -Last 24 Hours Temperature 98.4 F Temperature 98.9 F Temperature 97.9 F - Labs CBC & Chem 7: 04/10/17 05:16 04/10/17 05:16 <AYLA CATALAN - Last Filed: 04/12/17 16:22> Objective - Constitutional Vitals: Vital Signs Temp Pulse Resp BP Pulse Ox 98.4 F 72 18 112/69 97 04/12/17 07:39 04/12/17 07:39 04/12/17 07:39 04/12/17 07:39 04/12/17 07:39 Temperature -Last 24 Hours Temperature 98.4 F Temperature 98.9 F - Labs CBC & Chem 7: 04/10/17 05:16 04/10/17 05:16
--- NOTE | 2017-04-12 11:32 | Progress Note ---
Assessment and Plan Assessment and plan: Patient is a 26-year-old man with a history of tobacco dependency, marijuana use and ulcerative colitis, diagnosed July 2016 at [facility] with a colonoscopy at that time who presents to the [facility] emergency department with severe sharp constant right lower generalized abdominal pains that started about 5 days ago radiating across lower abdomen to the lower back, the pain became unbearable over the last 24 hours associated with nausea without vomiting , constipation, subjective fevers and chills. He denies any cough, chest pain, severe headaches. 2-3v LS spine reported as normal examination CT abd/pelvis w/ constrast reported as Centrally necrotic lymph nodes versus abscesses within the retroperitoneum and perirectal fat measuring up to 16 millimeters in greatest individual dimension, as detailed above. Correlation with immune status and symptoms and history of gastrointestinal inflammation/ infection is requested. Malignancy could appear similar but is thought less likely. There is suggested mild edematous rectal wall thickening and infiltration of the perirectal fat. Gastroenterology consultation may be helpful for initial further evaluation. Dr. Sarkar discussed findings with CHELSEY Rollins at 0803 central Time on 04/08/2017 immediately following the examination. -Abd pains most likely HIV related maybe associated with stopping smoking: consulted GI -HIV positive: consult ID -Mesenteric LAD: GI is following, HIV + Interferon gold pending for TB -Hypotension: treat with IVF -Constipation: miralax Await [facility]. Await Interferon Disposition: Hopefully the Inferferon GOLD test for Tb should be back tomorrow. GC should be back tomorrow and he can be discharged tomorrow. History Interval history: Patient was seen and examined. Follow-up on current diagnosis of abdominal pains. Overnight uneventful. Patient denies any chest pain, shortness breath, nausea/vomiting or severe headaches. Imaging, nursing note, chart, labs and old chart reviewed. Discussed with patient. Hospitalist Physical - Physical exam Narrative exam: GEN: WDWN, NAD, AWAKE, ALERT, ORIENTATED 3 HEENT: NCAT, EOMI, PERRL, OP Clear NECK: supple, no adenopathy, no thyromegaly, no JVD CVS/HEART: RRR, NORMAL S1S2, pulses present bilaterally CHEST/LUNGS: CTA B, Symmetrical chest expansion, good air entry bilaterally GI/Abdomen: soft, nondistended, diffuse tenderness with guarding, good bowel sounds, no rebound /Bladder: no suprapubic tenderness, no CVA or paraspinal tenderness EXT/Skin: no c/c/e, no obvious rash MSK: FROM x 4 Neuro: CN 2-12 grossly intact, no new focal deficits Psych: just was told he is HIV by Dr. Barrios, he is in shock right now, denies SI , HI - Constitutional Vitals: Temp Pulse Resp BP Pulse Ox 98.4 F 72 18 112/69 97 04/12/17 07:39 04/12/17 07:39 04/12/17 07:39 04/12/17 07:39 04/12/17 07:39 Results - Labs CBC & Chem 7: 04/10/17 05:16 04/10/17 05:16 Labs: Laboratory Last Values WBC 7.1 K/mm3 (4.5-11.0) 04/10/17 05:16 RBC 4.09 M/mm3 (3.65-5.03) 04/10/17 05:16 Hgb 12.5 gm/dl (11.8-15.2) 04/10/17 05:16 Hct 36.3 % (35.5-45.6) 04/10/17 05:16 MCV 89 fl (84-94) 04/10/17 05:16 MCH 31 pg (28-32) 04/10/17 05:16 MCHC 35 % (32-34) H 04/10/17 05:16 RDW 13.3 % (13.2-15.2) 04/10/17 05:16 Plt Count 239 K/mm3 (140-440) 04/10/17 05:16 Add Manual Diff Complete 04/08/17 03:07 Total Counted 100 04/08/17 03:07 Seg Neuts % (Manual) 60.0 % (40.0-70.0) 04/08/17 03:07 Band Neutrophils % 4.0 % 04/08/17 03:07 Lymphocytes % (Manual) 24.0 % (13.4-35.0) 04/08/17 03:07 Reactive Lymphs % (Man) 0 % 04/08/17 03:07 Monocytes % (Manual) 12.0 % (0.0-7.3) H 04/08/17 03:07 Eosinophils % (Manual) 0 % (0.0-4.3) 04/08/17 03:07 Basophils % (Manual) 0 % (0.0-1.8) 04/08/17 03:07 Metamyelocytes % 0 % 04/08/17 03:07 Myelocytes % 0 % 04/08/17 03:07 Promyelocytes % 0 % 04/08/17 03:07 Blast Cells % 0 % 04/08/17 03:07 Nucleated RBC % Not Reportable 04/08/17 03:07 Seg Neutrophils # Man 6.1 K/mm3 (1.8-7.7) 04/08/17 03:07 Band Neutrophils # 0.4 K/mm3 04/08/17 03:07 Lymphocytes # (Manual) 2.4 K/mm3 (1.2-5.4) 04/08/17 03:07 Abs React Lymphs (Man) 0.0 K/mm3 04/08/17 03:07 Monocytes # (Manual) 1.2 K/mm3 (0.0-0.8) H 04/08/17 03:07 Eosinophils # (Manual) 0.0 K/mm3 (0.0-0.4) 04/08/17 03:07 Basophils # (Manual) 0.0 K/mm3 (0.0-0.1) 04/08/17 03:07 Metamyelocytes # 0.0 K/mm3 04/08/17 03:07 Myelocytes # 0.0 K/mm3 04/08/17 03:07 Promyelocytes # 0.0 K/mm3 04/08/17 03:07 Blast Cells # 0.0 K/mm3 04/08/17 03:07 WBC Morphology Not Reportable 04/08/17 03:07 Hypersegmented Neuts Not Reportable 04/08/17 03:07 Hyposegmented Neuts Not Reportable 04/08/17 03:07 Hypogranular Neuts Not Reportable 04/08/17 03:07 Smudge Cells Not Reportable 04/08/17 03:07 Toxic Granulation Not Reportable 04/08/17 03:07 Toxic Vacuolation Not Reportable 04/08/17 03:07 Dohle Bodies Not Reportable 04/08/17 03:07 Pelger-Huet Anomaly Not Reportable 04/08/17 03:07 Dougie Rods Not Reportable 04/08/17 03:07 Platelet Estimate Appears normal 04/08/17 03:07 Clumped Platelets Not Reportable 04/08/17 03:07 Plt Clumps, EDTA Not Reportable 04/08/17 03:07 Large Platelets Few 04/08/17 03:07 Giant Platelets Not Reportable 04/08/17 03:07 Platelet Satelliting Not Reportable 04/08/17 03:07 Plt Morphology Comment Not Reportable 04/08/17 03:07 RBC Morphology Not Reportable 04/08/17 03:07 Dimorphic RBCs Not Reportable 04/08/17 03:07 Polychromasia Not Reportable 04/08/17 03:07 Hypochromasia 1+ 04/08/17 03:07 Poikilocytosis Not Reportable 04/08/17 03:07 Anisocytosis 1+ 04/08/17 03:07 Microcytosis Not Reportable 04/08/17 03:07 Macrocytosis Not Reportable 04/08/17 03:07 Spherocytes Not Reportable 04/08/17 03:07 Pappenheimer Bodies Not Reportable 04/08/17 03:07 Sickle Cells Not Reportable 04/08/17 03:07 Target Cells Not Reportable 04/08/17 03:07 Tear Drop Cells Not Reportable 04/08/17 03:07 Ovalocytes Not Reportable 04/08/17 03:07 Helmet Cells Not Reportable 04/08/17 03:07 [place] Bodies Not Reportable 04/08/17 03:07 [place] Rings Not Reportable 04/08/17 03:07 [place] Cells Not Reportable 04/08/17 03:07 Bite Cells Not Reportable 04/08/17 03:07 Crenated Cell Not Reportable 04/08/17 03:07 Elliptocytes Not Reportable 04/08/17 03:07 Acanthocytes (Spur) Not Reportable 04/08/17 03:07 Rouleaux Not Reportable 04/08/17 03:07 Hemoglobin C Crystals Not Reportable 04/08/17 03:07 Schistocytes Not Reportable 04/08/17 03:07 Malaria parasites Not Reportable 04/08/17 03:07 Bay Bodies Not Reportable 04/08/17 03:07 Hem Pathologist Commnt No 04/08/17 03:07 Sodium 138 mmol/L (137-145) 04/10/17 05:16 Potassium 4.0 mmol/L (3.6-5.0) 04/10/17 05:16 Chloride 100.5 mmol/L (98-107) 04/10/17 05:16 Carbon Dioxide 25 mmol/L (22-30) 04/10/17 05:16 Anion Gap 17 mmol/L 04/10/17 05:16 BUN 7 mg/dL (9-20) L 04/10/17 05:16 Creatinine 0.8 mg/dL (0.8-1.5) 04/10/17 05:16 Estimated GFR > 60 ml/min 04/10/17 05:16 BUN/Creatinine Ratio 9 % 04/10/17 05:16 Glucose 89 mg/dL (75-100) 04/10/17 05:16 Lactic Acid 0.70 mmol/L (0.7-2.0) 04/08/17 08:38 Calcium 8.4 mg/dL (8.4-10.2) 04/10/17 05:16 Total Bilirubin 0.30 mg/dL (0.1-1.2) 04/08/17 03:07 AST 34 units/L (5-40) 04/08/17 03:07 ALT 43 units/L (7-56) 04/08/17 03:07 Alkaline Phosphatase 119 units/L (35-129) 04/08/17 03:07 Total Creatine Kinase 137 units/L (55-170) 04/08/17 08:38 Total Protein 8.5 g/dL (6.3-8.2) H 04/08/17 03:07 Albumin 3.7 g/dL (3.9-5) L 04/08/17 03:07 Albumin/Globulin Ratio 0.8 % 04/08/17 03:07 Lipase 19 units/L (13-60) 04/08/17 03:07 Urine Color Yellow (Yellow) 04/08/17 Unknown Urine Turbidity Clear (Clear) 04/08/17 Unknown Urine pH 5.0 (5.0-7.0) 04/08/17 Unknown Ur Specific [place] 1.034 (1.003-1.030) H 04/08/17 Unknown Urine Protein <15 mg/dl mg/dL (Negative) 04/08/17 Unknown Urine Glucose (UA) Neg mg/dL (Negative) 04/08/17 Unknown Urine Ketones Neg mg/dL (Negative) 04/08/17 Unknown Urine Blood Neg (Negative) 04/08/17 Unknown Urine Nitrite Neg (Negative) 04/08/17 Unknown Urine Bilirubin Neg (Negative) 04/08/17 Unknown Urine Urobilinogen 4.0 mg/dL (<2.0) 04/08/17 Unknown Ur Leukocyte Esterase Neg (Negative) 04/08/17 Unknown Urine WBC (Auto) < 1.0 /HPF (0.0-6.0) 04/08/17 Unknown Urine RBC (Auto) 3.0 /HPF (0.0-6.0) 04/08/17 Unknown U Epithel Cells (Auto) < 1.0 /HPF (0-13.0) 04/08/17 Unknown Urine Mucus 1+ /HPF 04/08/17 Unknown RPR Titer 1:64 04/11/17 06:11 RPR Reactive (Nonreactive) 04/11/17 06:11 Hep Bs Antigen Non-reactive (Negative) 04/08/17 13:20 Hep B Core Total Ab Nonreactive (Nonreactive) 04/08/17 13:20 Hepatitis C Antibody Non-reactive (NonReactive) 04/08/17 13:20 HIV 1&2 Antibody Rapid Reactive (Non React) 04/08/17 17:22 HIV P24 Antigen Non react (Non React) 04/08/17 17:22
[2017-04-12 17:38] LABS: HIV-1 RNA QN PCR 5.4 Log cps/mL
[2017-04-13] MEDS: NACL 0.9% 1000 ML 1,000 ML IV SCH ×2 (01:18→11:28)
[2017-04-13] MEDS: FLAGYL PO SCH ×2 (05:58→15:45)
[2017-04-13] MEDS: MORPHINE IV PRN (06:38)
[2017-04-13 08:39] VITALS: BP 104/57
--- NOTE | 2017-04-13 08:50 | Progress Note ---
Assessment and Plan RLQ abdominal pain radiating to lower back: CT abd/pelvis w/ constrast reported as centrally necrotic lymph nodes versus abscesses within the retroperitoneum and perirectal fat measuring up to 16 millimeters in greatest individual dimension, as detailed above. Correlation with immune status and symptoms and history of gastrointestinal inflammation/infection is requested. Malignancy could appear similar but is thought less likely. There is suggested mild edematous rectal wall thickening and infiltration of the perirectal fat. X-ray lumbar spine was unremarkable. Pain control with Morphine, GI folowing. Mesenteric LAD: GI following pt. HIV positive: ID following, Interferon gold for TB negative. Hypotension: On IVF. Constipation: On Magnesium hydroxide Subjective Date of service: 04/13/17 Principal diagnosis: Ulcerative colitis Interval history: Patient seen and examind. No overnight events Objective - Constitutional Vitals: Vital Signs - 12hr 04/12/17 04/12/17 04/12/17 21:24 22:00 23:12 Temperature 99.0 F Pulse Rate 68 Respiratory 16 18 Rate Respiratory 18 Rate [Back] Blood Pressure 111/73 O2 Sat by Pulse 100 Oximetry 04/12/17 04/13/17 04/13/17 23:42 06:38 07:08 Temperature Pulse Rate Respiratory 18 18 18 Rate Respiratory Rate [Back] Blood Pressure O2 Sat by Pulse Oximetry 04/13/17 08:18 Temperature 98.4 F Pulse Rate 69 Respiratory 14 Rate Respiratory Rate [Back] Blood Pressure 104/57 O2 Sat by Pulse 98 Oximetry General appearance: Present: no acute distress, well-nourished - EENT Eyes: PERRL, EOM intact ENT: hearing intact, clear oral mucosa Ears: bilateral: normal - Neck Neck: supple, normal ROM - Respiratory Respiratory effort: normal Respiratory: bilateral: CTA - Cardiovascular Rhythm: regular Heart Sounds: Present: S1 & S2. Absent: gallop, rub Extremities: pulses intact, No edema, normal color, Full ROM - Gastrointestinal General gastrointestinal: Present: soft, non-tender, non-distended, normal bowel sounds - Integumentary Integumentary: clear, warm, dry - Musculoskeletal Musculoskeletal: 1, strength equal bilaterally - Neurologic Neurologic: moves all extremities - Psychiatric Psychiatric: memory intact, appropriate mood/affect, intact judgment & insight - Labs CBC & Chem 7: 04/10/17 05:16 04/10/17 05:16 Labs: Abnormal lab results 04/11/17 Range/Units 06:11 HIV-1 RNA PCR copies/ml [id number] H Copies/mL HIV-1 RNA (PCR) log 5.40 H Log cps/mL
[2017-04-13] MEDS: LEVAQUIN PO SCH (11:09)
--- NOTE | 2017-04-13 12:06 | Progress Note ---
<ABIMAEL DEAL - Last Filed: 04/13/17 15:49> Assessment and Plan Assessment: 1) Positive rapid HIV test. Risk factor MSM. Has had unprotected sex with 4 different partners last year. Also had syphilis which is frequently associated with HIV. -HIV 1&2 antibody rapid, reactive -Hepatitis panel, non reactive -Cryptococcal serum antigen 04/11 negative -RPR 1:64 reactive -04/08 stool for occult blood negative -QuantiFERON, non reactive -GC-chlamydia DNA in urine, non reactive 2) Abnormal CT A/P with centrally necrotic lymph nodes versus abscesses with a retroperitoneal and perirectal fat. ?TB, ?atyical mycobacteria. -Will ask interventional radiology to review CT of the abdomen and pelvis and consider a biopsy/aspiration of the lymph nodes. Per Dr. Huff, d/w Dr. Laney Underwood who directed me to speak with Dr. Choi, he is unable to get sample because lymph node to close to the Aorta. 3) Abdominal pain - ? due to 2). 4) Questionable history of ulcerative colitis 5) History of syphilis in September 2016, which was treated per the patient with 3 injections of IM of penicillin 6) History of tobacco use and marijuana use. 7) History of penicillin allergy. As per patient when he had penicillin to treat syphilis last year he had just some mild hives. Plan: -follow up confirmatory HIV -follow up HIV viral load, HIV genotype, CD4 count, HLA B 5701, per lab, results should be in by Monday -If confirmatory HIV test is positive patient will need to inform his previous sexual partners and will need HIV clinic -stop levofloxacin and flagyl day 6 of 7 -follow up request medical records from [facility], faxed -no further antibiotic for dishcharge -follow up in ID clinic with Dr. Madrid in 2 weeks, contact information provider to patient Thank you for your consultation, will follow up with you. Abimael Deal NP for Ayla Catalan MD Infectious Diseases Specialist [facility] ([facility] M [phone] Subjective Date of service: 04/13/17 Principal diagnosis: Ulcerative colitis Interval history: My medical records are at [facility], no fever Microbiology: Blood cultures: 04/08 NGTD 04/08 stool for occult blood negative 04/11 Cryptococcal serum antigen negative Current Antimicrobials: Levaquin 04/08- Metronidazole 04/08- Objective - Exam Narrative Exam: General appearance: Alert in NAD, conversant Eyes: anicteric sclerae, moist conjunctivae; no lid-lag; PERRLA HENT: Atraumatic; oropharynx clear with moist mucous membranes and no mucosal ulcerations/no oral thrush Neck: Trachea midline; supple Lungs: CTA, with normal respiratory effort and no intercostal retractions CV: RRR, no murmurs Abdomen: Soft, + BS. Mildly tender to palpation. Extremities: RROM Skin: Normal temperature, turgor and texture; no rash, ulcers or subcutaneous nodules Psych: Appropriate affect, calm and cooperative Neuro: alert and oriented x 3. Moving all extremities Lines: No CVL / PICC - Constitutional Vitals: Vital Signs Temp Pulse Resp BP Pulse Ox 98.4 F 69 14 104/57 98 04/13/17 08:18 04/13/17 08:18 04/13/17 08:18 04/13/17 08:18 04/13/17 08:18 Temperature -Last 24 Hours Temperature 98.4 F Temperature 99.0 F Temperature 98.6 F - Labs CBC & Chem 7: 04/10/17 05:16 04/10/17 05:16 Labs: Abnormal lab results 04/11/17 04/11/17 Range/Units 06:11 12:25 T.pallidum Ab (FTA-ABS) Reactive H (Nonreactive) HIV-1 RNA PCR copies/ml [id number] H Copies/mL HIV-1 RNA (PCR) log 5.40 H Log cps/mL <AYLA CATALAN - Last Filed: 04/13/17 16:32> Objective - Constitutional Vitals: Vital Signs Temp Pulse Resp BP Pulse Ox 98.4 F 69 14 104/57 98 04/13/17 08:18 04/13/17 08:18 04/13/17 08:18 04/13/17 08:18 04/13/17 08:18 Temperature -Last 24 Hours Temperature 98.4 F Temperature 99.0 F - Labs CBC & Chem 7: 04/10/17 05:16 04/10/17 05:16 Labs: Abnormal lab results 02/20/18 02/20/18 02/20/18 Range/Units 06:11 06:11 12:25 Lymph Enumerat CD4/CD8 0.14 L (0.86-5.00) % CD3 Cells 87 H (57-85) % % CD4 Cells 10 L (30-61) % Absolute CD4 Count 266 L (490-1740) cells/uL % CD8 Cells 75 H (12-42) % Absolute CD8 Count 1906 H (180-1170) cells/uL % CD19 Cells 2 L (6-29) % Absolute CD19 Count 44 L (110-660) cells/uL T.pallidum Ab (FTA-ABS) Reactive H (Nonreactive) HIV-1 RNA PCR copies/ml [id number] H Copies/mL HIV-1 RNA (PCR) log 5.40 H Log cps/mL
--- NOTE | 2017-04-13 14:45 | Discharge Summary ---
Providers - Providers Date of Admission: 04/08/17 10:54 Date of discharge: 04/13/17 Attending physician: KARRI ACKERMAN 04/08/17 09:54 Consult to Physician [CONS] Routine Consulting Provider: DIALLO MORALES Reason For Exam: ulcerative colitis Place consult to:: aurelio service Notified:: yes Phone number called:: [phone] Was contact made?: Yes If yes, spoke with:: Aldo Time called:: 09:57 04/09/17 15:50 Consult to Physician [CONS] Routine Consulting Provider: BEKAH RUBIO Reason For Exam: HIV Place consult to:: DR. MCKEON Notified:: DR. MCKEON Phone number called:: [phone] Was contact made?: Yes If yes, spoke with:: Time called:: 18:11 04/10/17 19:34 Consult to Interventional Radiology [CONS] Routine Consulting Provider: ARIA ROBISON Reason For Exam: Biopsy of abdominal lymph nodes Place consult to:: DR. BARRIOS Notified:: DR. BARRIOS Phone number called:: IN HOUSE Was contact made?: Yes If yes, spoke with:: DR. BARRIOS Time called:: 11:10 Primary care physician: JUAN PERSON Hospitalization Condition: Stable Pertinent studies: Patient is a 26-year-old man with a history of tobacco dependency, marijuana use and ulcerative colitis, diagnosed July 2016 at [facility] with a colonoscopy at that time who presents to the [facility] emergency department with severe sharp constant right lower generalized abdominal pains that started about 5 days ago radiating across lower abdomen to the lower back, the pain became unbearable over the last 24hours associated with nausea without vomiting , constipation, subjective fevers and chills. He denies any cough, chest pain, severe headaches. Procedures: none Hospital course: Patient is a 26-year-old man with a history of tobacco dependency, marijuana use and ulcerative colitis, diagnosed July 2016 at [facility] with a colonoscopy at that time who presents to the [facility] emergency department with severe sharp constant right lower generalized abdominal pains that started about 5 days ago radiating across lower abdomen to the lower back, the pain became unbearable over the last 24hours associated with nausea without vomiting , constipation, subjective fevers and chills. He denies any cough, chest pain, severe headaches. CD4 was 5.4 viral load was 251,000. No fever and no cough Medial record awaited from [facility] like [facility] and [facility]. Await for report but not yet availability. Pt said that he has to go home today so as no to have his property thrown outs poteno as to arrange Disposition: DC-01 TO HOME OR SELFCARE Time spent for discharge: 35 mins Core Measure Documentation - Palliative Care Palliative Care/ Comfort Measures: Not Applicable - Core Measures Any of the following diagnoses?: none Exam - Constitutional Vitals: Temp Pulse Resp BP Pulse Ox 98.4 F 69 14 104/57 98 04/13/17 08:18 04/13/17 08:18 04/13/17 08:18 04/13/17 08:18 04/13/17 08:18 General appearance: Present: no acute distress, mild distress, well-nourished - EENT Eyes: Present: PERRL ENT: hearing intact, clear oral mucosa, hearing decreased - Neck Neck: Present: supple, normal ROM - Respiratory Respiratory effort: normal Respiratory: bilateral: CTA - Cardiovascular Heart Sounds: Present: S1 & S2. Absent: rub, click - Extremities Extremities: pulses symmetrical, No edema Peripheral Pulses: within normal limits - Abdominal General gastrointestinal: Present: soft, non-tender, non-distended, normal bowel sounds Male genitourinary: Present: normal - Integumentary Integumentary: Present: clear, warm, dry - Musculoskeletal Musculoskeletal: gait normal, strength equal bilaterally - Psychiatric Psychiatric: appropriate mood/affect, intact judgment & insight - Neurologic Neurologic: CNII-XII intact, moves all extremities Plan Activity: advance as tolerated, fall precautions Diet: regular Wound: per your surgeon's advice, per wound nurse instructions, drain care as instructed Follow up with: JUAN PERSON MD [Primary Care Provider] - 3-5 Days KANWAL GAMBOA MD [Staff Physician] - 7 Days Prescriptions: Levofloxacin [Levaquin TAB] 500 mg PO Q24HR #5 tablet
[2017-04-13 16:24] LABS: CD4/CD8 Ratio 0.14 (0.86-5.00)
== END 2017-04-13 16:10 | disposition home or self-care (01) | DRG 387 ==
LOC: ED 01:12 → 3A 10:54 → UNDODISIN 16:45
PROVIDERS: ADMIT Internal Medicine; ATTEND Family Medicine
DX: K51.90 Ulcerative colitis, unspecified, without complications (principal); Z88.0 Allergy status to penicillin; Z88.2 Allergy status to sulfonamides; Z88.8 Allergy status to other drugs, medicaments and biological substances; J45.909 Unspecified asthma, uncomplicated; Z87.891 Personal history of nicotine dependence; R59.0 Localized enlarged lymph nodes; I95.9 Hypotension, unspecified; K59.00 Constipation, unspecified; F12.10 Cannabis abuse, uncomplicated; Z21 Asymptomatic human immunodeficiency virus [HIV] infection status
CPT/HCPCS: 36415; 72100; 74177; 80048; 80053; 81001; 81381; 82024; 82140; 82164; 82271; 82550; 83690; 85007; 85025; 85027; 86403; 86592; 86593; 86689; 86705; 86706; 86780; 86803; 87040; 87536; 87591; 87806; 87901; 96361; 96374; 96375; J1956; J2270; J7030; Q9967

== ENCOUNTER 2017-09-16 21:36 | Emergency (ER) | payer SELFPAY ==
[2017-09-16 21:48] VITALS: BP 114/78
[2017-09-16 22:45] LABS: Basophils % (Auto) 0.4 % (0.0-1.8); Eosinophils # (Auto) 0.1 K/mm3 (0.0-0.4); Eosinophils % (Auto) 1.1 % (0.0-4.3); Hematocrit 41.6 % (35.5-45.6); Hemoglobin 14.5 gm/dl (11.8-15.2); Lymphocytes # (Auto) 2.4 K/mm3 (1.2-5.4); Lymphocytes % (Auto) 33.2 % (13.4-35.0); Mean Corpuscular HGB Conc 35 % (32-34); Mean Corpuscular Hemoglobin 33 pg (28-32); Mean Corpuscular Volume 94 fl (84-94); Monocytes # (Auto) 0.8 K/mm3 (0.0-0.8); Monocytes % (Auto) 11.1 % (0.0-7.3); Platelet Count 222 K/mm3 (140-440); Red Blood Count 4.43 M/mm3 (3.65-5.03); Red Cell Distribution Width 13.3 % (13.2-15.2)
[2017-09-17] MEDS ORDERED: ULTRAM ONE (00:31)
[2017-09-17] MEDS ORDERED: ULTRAM PO ONE (00:32)
[2017-09-17] MEDS ORDERED: TYLENOL #3 ONE (00:35)
[2017-09-17] MEDS ORDERED: TYLENOL #3 PO ONE (00:35)
--- NOTE | 2017-09-17 00:39 | Emergency Department Report ---
ED Male HPI - General Chief complaint: Rectal Pain Stated complaint: PAIN IN BOWEL MOVEMENT/BLOOD IN STOOL Time Seen by Provider: 09/17/17 00:03 Source: patient Mode of arrival: Ambulatory Limitations: No Limitations - History of Present Illness Initial comments: 27-year-old -[place] male comes in complaining of rectal pain since Monday of last week. 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 Patient in reports painful defecation and noted to have blood on his tissue today. Patient does engage in anal sex. Patient reports that he's been using preparation H which she reports does not help much. He is taken Tylenol [id number] which she reports has not helped much. Patient has an allergy to ibuprofen and penicillin fall for tramadol. - Related Data Previous Rx's Medication Instructions Recorded Last Taken Type HYDROcodone/ACETAMINOPHEN [[place] 1 each PO Q6HR PRN #20 tablet 03/10/13 Unknown Rx 5/325 Tablet] Metaxalone [Skelaxin] 800 mg PO TID #30 tablet 03/10/13 Unknown Rx Levofloxacin [Levaquin TAB] 500 mg PO Q24HR #5 tablet 04/13/17 Unknown Rx Acetaminophen/Codeine [Tylenol 1 tab PO Q6H PRN #12 tab 09/17/17 Unknown Rx /Codeine # 3 tab] Allergies Allergy/AdvReac Type Severity Reaction Status Date / Time ibuprofen [From Advil] Allergy Hives Verified 04/08/17 10:09 Penicillins Allergy Rash Verified 04/08/17 10:09 Sulfa (Sulfonamide Allergy Rash Verified 04/08/17 10:09 Antibiotics) tramadol AdvReac Diarrhea Verified 04/08/17 10:09 ED Review of Systems ROS: Stated complaint: PAIN IN BOWEL MOVEMENT/BLOOD IN STOOL Other details as noted in HPI ED Past Medical Hx - Past Medical History Hx Hypertension: No Hx Heart Attack/AMI: No Hx Congestive Heart Failure: No Hx Diabetes: No Hx Deep Vein Thrombosis: No Hx Pulmonary Embolism: No Hx Liver Disease: No Hx Renal Disease: No Hx Sickle Cell Disease: No Hx Arthritis: No Hx Headaches / Migraines: No Hx Seizures: No Hx Kidney Stones: No Hx Asthma: Yes Hx COPD: No Hx Tuberculosis: No Hx Dementia: No Hx HIV: Yes - Surgical History Hx Coronary Stent: No Hx Open Heart Surgery: No Hx Pacemaker: No Hx Internal Defibrillator: No Hx Cholecystectomy: No Hx Appendectomy: No Hx Breast Surgery: No Additional Surgical History: Ear surgery as a teenager. - Social History Smoking Status: Never Smoker Substance Use Type: None - Medications Home Medications: Home Medications Medication Instructions Recorded Confirmed Last Taken Type HYDROcodone/ACETAMINOPHEN [[place] 1 each PO Q6HR PRN #20 tablet 03/10/13 Unknown Rx 5/325 Tablet] Metaxalone [Skelaxin] 800 mg PO TID #30 tablet 03/10/13 Unknown Rx Levofloxacin [Levaquin TAB] 500 mg PO Q24HR #5 tablet 04/13/17 Unknown Rx Acetaminophen/Codeine [Tylenol 1 tab PO Q6H PRN #12 tab 09/17/17 Unknown Rx /Codeine # 3 tab] ED Physical Exam - General Limitations: No Limitations General appearance: alert, in no apparent distress - ENT ENT exam: Present: mucous membranes moist - GI/Abdominal GI/Abdominal exam: Present: soft. Absent: distended, tenderness, guarding - Rectal Rectal exam: Present: normal rectal tone, tenderness. Absent: decreased rectal tone, fecal impaction, hemorrhoids, mass - Extremities Exam Extremities exam: Present: normal inspection, full ROM. Absent: tenderness - Back Exam Back exam: Present: normal inspection, full ROM. Absent: tenderness - Neurological Exam Neurological exam: Present: alert, oriented X3 - Psychiatric Psychiatric exam: Present: normal affect, normal mood - Skin Skin exam: Present: warm, dry, intact, normal color. Absent: rash ED Course Vital Signs 09/16/17 09/16/17 09/17/17 21:36 22:04 00:39 Temperature 98.3 F 98.3 F Pulse Rate 77 69 Respiratory 18 18 18 Rate Blood Pressure 114/78 114/78 O2 Sat by Pulse 98 99 Oximetry ED Medical Decision Making - Lab Data Result diagrams: 09/16/17 22:21 Critical care attestation.: If time is entered above; I have spent that time in minutes in the direct care of this critically ill patient, excluding procedure time. ED Disposition Clinical Impression: Anal or rectal pain Disposition: [id number] TO HOME OR SELFCARE Is pt being admited?: No Does the pt Need Aspirin: No Condition: Stable Additional Instructions: Take pain medication as needed. Follow up with the colorectal specialist I have listed one below. Prescriptions: Acetaminophen/Codeine [Tylenol /Codeine # 3 tab] 1 tab PO Q6H PRN #12 tab PRN Reason: Pain Referrals: PRIMARY CARE, [Primary Care Provider] - 3-5 Days ADRIENNE BRAXTON MD [Staff Physician] - 3-5 Days ROWAN HOFFMAN MD [Staff Physician] - 3-5 Days Forms: Work/School Release Form(ED)
== END 2017-09-17 02:14 | disposition home or self-care (01) ==
LOC: ED 21:36
DX: K62.89 Other specified diseases of anus and rectum (principal); J45.909 Unspecified asthma, uncomplicated; Z88.6 Allergy status to analgesic agent; Z88.0 Allergy status to penicillin; Z88.2 Allergy status to sulfonamides; Z88.8 Allergy status to other drugs, medicaments and biological substances
CPT/HCPCS: 36415; 85025; 99283